=== PATIENT | male | born 2000 | race Caucasian/White ===

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

== ENCOUNTER 2023-05-16 08:42 | Outpatient (REF) | payer MEDICAID, SELFPAY ==
[2023-05-16 12:05] LABS: Cholesterol 253 mg/dL (<200); HDL Cholesterol 45 mg/dL (>40); LDL Cholesterol Calculated 152 mg/dL (<100); Triglycerides 283 mg/dL (<150)
== END 2023-05-16 08:43 | disposition home or self-care (01) ==
LOC: HO.HHCL 08:42
PROVIDERS: Visit Provider Family Medicine
DX: E78.5 Hyperlipidemia, unspecified (principal)
CPT/HCPCS: 36415; 80061

== ENCOUNTER 2024-10-26 08:37 | Outpatient (REF) | payer MEDICAID, SELFPAY ==
--- OUTSIDE RECORDS SUMMARY | 2024-10-26 09:34 | XMS_ITS | Encounter Summary ---
Author Organization [facility] Address [address] [place] [address] Care Team Providers Care Certified Registered Locksmith Name Role Phone Madyson Mayorga Primary Care Provider Reason for Visit * Reason Onset Date Comments CS - NEW RX REQ 04/22/2022 Encounter Details Date Type Department Care Team (Late Contact Info) Description 04/22/2022 Telephone [facility] Central Scheduling Department [address] [place] [phone] Telephone Intake, Staff CS - NEW RX REQ Social History Tobacco Use Types Packs/Day Years Used Date Smoking Tobacco: Never Smokeless Tobacco: Never Sex and Gender Information Value Date Recorded Sex Assigned at Male 03/21/2024 9:27 AM EST Legal Sex Male 6:52 PM EDT Gender Identity Male 03/21/2024 9:27 AM EST Sexual Orientation Bisexual 03/21/2024 9: 27 AM EST documented as of this encounter Miscellaneous Notes * Telephone Encounter - Angy Chan - 04/22/2022 3:29 PM EST Prescription refill request Requested by SEFERINO Medication: ketoconazole Provider: Kayce Pharmacy: [facility] [address] [place] [phone] (confirmed with caller Pharmacy in chart is correct) How much medication does patient have left: ALMOST OUT - filled 3 weeks ago Comments Callback# [phone] documented in this encounter Plan of Treatment Upcoming Encounters Date Type Department Care Team (Late st Contact Info) Description 03/26/2025 9:30 AM EST Office Visit [facility] 4th Floor [address] [facility], [place] [address] Search Director: Anais Ramos MD [address] [place] [address] documented as of this encounter Visit Diagnoses Not on filedocumented in this encounter Care Teams Certified Registered Locksmith Relationship Specialty Start Date End Date Madyson Mayorga [address] [place] [phone] PCP - General Family Medicine 09/14/23 documented as of this encounter
--- OUTSIDE RECORDS SUMMARY | 2024-10-26 09:34 | XMS_ITS | Clinical Summary ---
Author Organization [facility] Address [address] [place] [phone] Phone Care Team Providers Care Nail Cutter Name Role Phone Madyson Mayorga Primary Care Provider [phone] Madyson Mayorga Unavailable [phone] Social History Tobacco Use Types Packs/Day Years Used Date Smoking Tobacco: Never Assessed Sex and Gender Information Value Date Recorded Sex Assigned at Male 06/07/2023 11:50 PM EDT Legal Sex Male 11:50 PM EDT Gender Identity Male 06/07/2023 11:50 PM EDT Sexual Orientation Not on file Plan of Treatment Not on file Care Teams Nail Cutter Relationship Specialty Start Date End Date Madyson Mayorga [address] [place] [phone] PCP - General 10/09/21 Madyson Mayorga [address] [place] [phone] PCP - Clinical PCP 10/09/21
--- OUTSIDE RECORDS SUMMARY | 2024-10-26 09:34 | XMS_ITS | Encounter Summary ---
Author Organization [facility] Address [address] [place] [address] Care Team Providers Care Bilingual Instructor Name Role Phone Madyson Mayorga Primary Care Provider Reason for Visit * Reason Onset Date Comments Confirmation 03/06/2021 Encounter Details Date Type Department Care Team (Late st Contact Info) Description 03/06/2021 Telephone [facility] Central Scheduling Department [address] [place] [phone] Telephone Intake, Staff Confirmation Social History Tobacco Use Types Packs/Day Years Used Date Smoking Tobacco: Never Smokeless Tobacco: Never Sex and Gender Information Value Date Recorded Sex Assigned at Male 03/21/2024 9:27 AM EST Legal Sex Male 6:52 PM EDT Gender Identity Male 03/21/2024 9:27 AM EST Sexual Orientation Bisexual 03/21/2024 9: 27 AM EST documented as of this encounter Miscellaneous Notes * Telephone Encounter - Tamara Yoniliv - 03/06/2021 9:57 AM EST Derm Pt's Dad requesting through [employer] for an individual small group instructor be present at pt's appt 03/[address] Anais Devries I did note this request in the appt notes documented in this encounter Plan of Treatment Upcoming Encounters Date Type Department Care Team (Late st Contact Info) Description 03/26/2025 9:30 AM EST Office Visit [facility] 4th Floor [address] [facility], [place] [address] Electric Plater: Zaynab Devries, Anais Ham MD [address] [place] [address] documented as of this encounter Visit Diagnoses Not on filedocumented in this encounter Care Teams Bilingual Instructor Relationship Specialty Start Date End Date [place], Madyson Velasco [address] [place] [phone] PCP - General Family Medicine 09/14/23 documented as of this encounter
--- OUTSIDE RECORDS SUMMARY | 2024-10-26 09:34 | XMS_ITS | Clinical Summary ---
Author Organization [facility] Address [address] [place] [address] Care Team Providers Care Gum Worker Name Role Phone Madyson Mayorga Primary Care Provider Allergies No known active allergies Medications benztropine (COGENTIN) 1 mg tablet Take 1 mg by mouth 2 times a day. Active clonazePAM (KlonoPIN) [address] 1 tablet between cheek and gums as needed for seizure greater th Active cloNIDine (CATAPRES) 0.1 mg tablet Take 0.1 mg by mouth nightly. Active hydrOXYzine (VISTARIL) 25 mg capsule Take 1 capsule by mouth four times a day (04/24) Active propranolol LA (INDERAL LA) 60 mg capsule Take 60 mg by mouth at bed time. As directed Active divalproex DR (DEPAKOTE) 500 mg EC tablet Take 500 mg by mouth 2 times daily. 01/30/20 Active diazePAM (DIASTAT ACUDIAL) 12.5-15-17.5-20 mg rectal kit Insert 15 mg into the rectum. 01/18/20 20 Active cholecalciferol (VITAMIN D3) 1,000 unit tablet 2000 units by mouth daily 10/17/19 20 Active cloNIDine (CATAPRES) 0.3 mg tablet 03/10/19 22 Active OLANZapine (ZyPREXA) 5 mg tablet 03/10/19 22 Active fluticasone propionate (FLONASE) 50 mcg/actuation nasal spray 03/18/19 22 Active OLANZapine (ZyPREXA) 5 mg tablet SMARTSI Tablet(s) By Mouth 3 Times Daily 05/09/19 21 Active benztropine (COGENTIN) 1 mg tablet SMARTSI Tablet(s) By Mouth Twice Daily 10/14/[address] (DEPAKOTE) 250 mg EC tablet TAKE 1 TABLET BY MOUTH NIGHTLY. 01/29/20 21 Active DOCOSAHEXAENOIC ACID ORAL Take 2 g by mouth daily. 12/01/19 22 Active doxycycline hyclate 100 mg tablet 1 tablet by oral route 2 times per day x 4 months Active famotidine (PEPCID) 20 mg tablet 10/09/19 22 Active meloxicam (MOBIC) 7.5 mg tablet Take 7.5 mg by mouth daily. 05/06/19 23 Active naproxen (NAPROSYN) 500 mg tablet 10/09/19 22 Active senna 8.6 mg tablet 07/31/19 22 Active clindamycin (CLEOCIN T) 1% topical solutionIndication s:Acne keloidalis Apply to bumps on the back of the head once a day. 60 mL 11/20/19 23 Active omega 8-fnm-its-fish oil (Fish OiL) 1,000 mg (120 mg-180 mg) capsule Take by mouth. 06/23/19 24 Active cholecalciferol 400 unit tablet 0 Refills, Maintenance, 06/23/23 11:15:00 EDT, Partial fill upon patient request if the prescription is for a schedule II opioid drug. 06/23/19 24 Active diclofenac (VOLTAREN) 1% gel Apply 4 g topically to the affected area 4 (four) times daily. 04/13/19 24 Active clindamycin (Cleocin T) 1 % lotionIndications: Acne keloid Apply a thin layer daily to the back of the scalp in the morning 60 mL 11/23/19 24 Active fluocinonide (LIDEX) 0.05% solutionIndication s:Acne keloidalis Apply a few drops to the bumps on back of the scalp 1-2x a day as needed for itch, taper off with improvement 60 mL 03/28/19 25 Active ketoconazole (NIZORAL) 2% shampooIndications :Other specified follicular disorders Use as a shampoo every other day to the scalp, neck and back. Leave on for 2-5 minutes then rinse. 120 mL 03/28/19 25 Active clindamycin (CLEOCIN T) 1 % gelIndications:Acn e keloid Apply a thin layer to back of scalp in the morning. 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 Resolved Problems Problem Noted Date Diagnosed Date Resolved Date Folliculitis 10/31/2015 11/25/2017 Dermatitis due to unknown cause 10/27/2015 11/25/2017 Social History Tobacco Use Types Packs/Day Years Used Date Smoking Tobacco: Never Smokeless Tobacco: Never Tobacco Cessation:Counseling Given: Not Answered Sex and Gender Information Value Date Recorded Sex Assigned at Male 03/21/2024 9:27 AM EST Legal Sex Male 6:52 PM EDT Gender Identity Male 03/21/2024 9:27 AM EST Sexual Orientation Bisexual 03/21/2024 9: 27 AM EST Last Filed Vital Signs Vital Sign Reading Time Taken Comments Blood Pressure 118/60 10/27/2015 3:54 PM EDT Pulse - - Temperature - - Respiratory Rate - - Oxygen Saturation - - Inhaled Oxygen Concentration - - Weight 66.7 kg (147 lb 0.8 oz) 08/24/2023 10:28 AM EDT Height 165 cm (5' 4.96 ) 07/16/2022 2:20 PM EDT Body Mass Index 24.5 07/16/2022 2:20 PM EDT Plan of Treatment Upcoming Encounters Date Type Department Care Team (Late st Contact Info) Description 03/26/2025 9:30 AM EST Office Visit [facility] 4th Floor [address] [facility], Fourth [place] [address] Clerical Methods Analyst: Anais Ramos MD [address] [place] [address] Health Maintenance Due Date Last Done Comments COVID-19 Vaccine (2023-2 5 season) 2023 05/13/2023, 08/11/2022, 02/12/2021, Additional history exists Alcohol/Substance Use Screening 02/29/2024 Influenza Vaccine (#1) 2024 , 01/21/2021, 12/28/2019, Additional history exists DTaP,Tdap,and Td Vaccines (8 - Td or Tdap) 05/12/2033 05/13/2023, 04/06/2013, 09/03/2005, Additional history exists RSV Vaccine (60+ years old a nd patients) (1 - 1-dose 75+ series) 2076 Hepatitis B Vaccines Completed 2001, 2001, 2001 Varicella Vaccines Completed 10/05/2010, 05/24/2002 HPV Vaccines Completed 05/01/2015, 11/28, 05/20/2014 Meningococcal Vaccine Completed 01/18/2018, 014 HIV Screening Completed 08/18/2022, 08/18/2022 Pneumococcal Vaccine: Pediat anjel (0-5 Years) and At-Risk Patients (6-50 Years) Completed 05/13/2023, 09/03/2002, 2001, Additional history exists Insurance MEDICARE [facility] Care Teams Gum Worker Relationship Specialty Start Date End Date [place], Madyson Velasco [address] [place] [address] PCP - General Family Medicine 09/14/23
--- OUTSIDE RECORDS SUMMARY | 2024-10-26 09:34 | XMS_ITS | Encounter Summary ---
Author Organization [facility] Address [address] [facility] [address] [place] [address] Care Team Providers Care Hydro Pneumatic Tester Name Role Phone Madyson Mayorga MD Primary Care Provider [phone] Encounter Details Date Type Department Care Team (Late Contact Info) Description 09/27/2022 Orders Only [facility] MEDICINE [address] [place] [phone] Madyson Mayorga MD [address] [place] [address] [phone] Right wrist pain (Primary Dx) Social History Tobacco Use Types Packs/Day Years Used Date Smoking Tobacco: Never Smokeless Tobacco: Never Sex and Gender Information Value Date Recorded Sex Assigned at Male 12/28/2021 10:21 AM EDT Legal Sex Male 10:21 AM EDT Gender Identity Male 12/28/2021 10:21 AM EDT Sexual Orientation Choose not to disclose 2021 10:21 AM EDT documented as of this encounter Plan of Treatment Upcoming Encounters Date Type Department Care Team (Late Contact Info) Description 11/05/2024 9:00 AM EDT Office Visit [facility] MEDICINE [address] [place] [phone] Madyson Mayorga MD [address] [place] [address] [phone] documented as of this encounter Visit Diagnoses Diagnosis Right wrist pain- Primary Pain in joint, forearm Schizoaffective disorder, unspecified type (CMS/HCC)- Primary Dyslipidemia Other and unspecified hyperlipidemia Obesity with serious comorbidity, unspecified class, unspecified obesity type documented in this encounter Care Teams Hydro Pneumatic Tester Relationship Specialty Start Date End Date Madyson Mayorga MD [address] [place] [phone] PCP - General Family Medicine 09/15/20 documented as of this encounter
--- OUTSIDE RECORDS SUMMARY | 2024-10-26 09:34 | XMS_ITS | Encounter Summary ---
Author Organization [facility] Address [address] [facility] [address] [place] [address] Care Team Providers Care Airport Utility Worker Name Role Phone Madyson Mayorga MD Primary Care Provider [phone] Reason for Visit * Reason Onset Date Comments FYI 04/19/2023 Encounter Details Date Type Department Care Team (Late st Contact Info) Description 04/19/2023 Telephone [facility] MEDICINE [address] [place] [address] Madyson Mayorga MD [address] [place] [address] FYI Social History Tobacco Use Types Packs/Day Years Used Date Smoking Tobacco: Never Passive Smoke Exposure: Never Smokeless Tobacco: Never Alcohol Use Standard Drinks/Week Comments Never 0 (1 standard drink = 0.6 oz pur e alcohol) Housing Stability Answer Date Recorded What is your housing situation today? I do not have housing (Staying with others, in a hotel, in a half-way, living outside on the street, on a beach, in a car, or in a park 03/30/[address] you li ve. Do you have problems with any of the following? None of the above 03/30/2023 Food Insecurity Answer Date Recorded Within the past 12 months, y ou worried that your food would run out before you got money to buy more: Never True 01/03/2023 Within the past 12 months,th e food you bought just didn't last and you didn't have enough money to get more: Never True 07/2022 Transportation Answer Date Recorded In the past 12 months, has l ack of transportation kept you from medical appts, meetings, work or from getting things needed for daily living? No 01/03/2023 Utilities Answer Date Recorded In the past 12 months, has t he electric, gas, oil or water company threatened to shut off services in your home? No 01/03/2023 Sex and Gender Information Value Date Recorded Sex Assigned at Male 12/28/2021 10:21 AM EDT Legal Sex Male 10:21 AM EDT Gender Identity Male 12/28/2021 10:21 AM EDT Sexual Orientation Choose not to disclose 2021 10:21 AM EDT documented as of this encounter Miscellaneous Notes * Telephone Encounter - Blanca Rouse RN - 04/19/2023 3:59 PM EST T/C made to pt's mother with [employer] [place] ID [id number] in regards to information about message from [facility]. Received phone number from Oleksandr (pts father) and will contact [facility] to confirm request for labs on this pt. No answer from [facility] requesting clarification. Will advise to PCP and follow up at a later time. * Telephone Encounter - Torin Silverio - 04/19/2023 12:06 PM EST Tc from the patients father calling to to inform the provider that the patient was advised by a Provider from [facility] to get blood works to monitor high B-12 levels and ammonia levels documented in this encounter Plan of Treatment Upcoming Encounters Date Type Department Care Team (Late st Contact Info) Description 11/05/2024 9:00 AM EDT Office Visit [facility] MEDICINE [address] [place] [address] Madyson Mayorga MD [address] [place] [address] documented as of this encounter Visit Diagnoses Not on filedocumented in this encounter Care Teams Airport Utility Worker Relationship Specialty Start Date End Date Madyson Mayorga MD [address] [place] [address] PCP - General Family Medicine 09/15/20 documented as of this encounter
--- OUTSIDE RECORDS SUMMARY | 2024-10-26 09:34 | XMS_ITS | Clinical Summary ---
Author Organization [employer] Address [address] [facility] [address] [place] [address] Care Team Providers Care Pharmacology Teacher Name Role Phone Madyson Mayorga MD Primary Care Provider [phone] Allergies No known active allergies Medications benztropine (Cogentin) 1 MG tablet Take 1 tablet by mouth 2 times daily. Active clonazePAM (KlonoPIN) 1 MG disintegrating tablet 1 tab placed between cheek and gums prn seizure activity > 3 minutes Active divalproex (Depakote) 500 MG EC tablet Take 500 mg by mouth 2 times daily. Active doxycycline (Vibra-Tabs) 100 MG tablet 1 tablet by oral route 2 times per day x 4 months Active fluticasone (Flonase Allergy Relief) 50 MCG/ACT nasal spray Administer 2 sprays into affected nostril(s) in the morning. 03/18/19 22 Active hydrOXYzine pamoate (Vistaril) 25 MG capsule Take 25 mg by mouth 4 times daily. Active ketoconazole (NIZOral) 2 % shampoo use for scalp, neck and back qod Active OLANZapine (ZyPREXA) 5 MG tablet take 1 tab po qAM Active OLANZapine (ZyPREXA) 7.5 MG tablet Take 1 tab po qhs Active propranolol LA (Inderal LA) 60 MG 24 hr capsule 1 capsule,extended release 24 hr by Oral route every day Active DOCOSAHEXAENOIC ACID PO Take 2 g by mouth in the morning. 12/01/19 22 Active cholecalciferol (Vitamin D3) 25 MCG (1000 UT) tablet 08/03/19 23 Active cloNIDine (Catapres) 0.3 MG tablet 08/03/19 23 Active diazePAM (Diastat Acudial) rectal kit Insert 15 mg into the rectum. 01/18/20 20 Active meloxicam (Mobic) 7.5 MG tablet 08/03/19 23 Active omega-3 (fish oil) 1000 MG capsuleIndications :Dyslipidemia Take 1 tab po bid 60 capsule 11 08/12/19 23 Active divalproex sprinkle (Depakote Sprinkle) [address] capsule 03/09/19 24 Active fluocinonide (Lidex) 0.05 % external solution 11/23/19 23 Active Diclofenac Sodium 1 % gel Apply 4 g topically in the morning and 4 g at noon and 4 g in the evening and 4 g before bedtime. 04/13/19 24 Active famotidine (Pepcid) 20 MG tablet Take 20 mg by mouth. 06/23/19 24 Active sennosides (Senokot) 8.6 MG tablet TAKE 1 TO 2 TABLETS BY MOUTH AT BEDTIME NEEDED FOR CONSTIPATION 180 tablet 05/16/19 25 Active carboxymethylcellu lose (Refresh Liquigel) 1 % ophthalmic solution dropperetteIndicat ions:Bilateral incomplete blink Apply 1 drop to both eyes at bedtime. 15 mL 12 07/21/19 25 Active clindamycin (Cleocin T) 1 % lotion 03/01/19 25 Active Active Problems Problem Noted Date Diagnosed Date Bilateral hand pain 06/29/2023 Overview (06/29/2023): -seen at [facility] pain clinic With Dr. Tanya Rios on 06/29/23 -no evidence of RA with rheumatology Aortic valve prolapse 06/27/2023 Overview (06/27/2023): -Mild to moderate -Cardiology note 06/24/[address] Yanely Bravo, DO, FAAP, FACC, Pediatric Cardiology [facility] -echo 06/23/23 no significant LVH, mild thickened aortic valve, unchanged from 2 years pior -recommend transition to adult congenital heart disease clinic with follow up 1 year, referral placed by pediatric cardiology 06/23/23 -No interventions. No need for SBE prophylaxis. 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 Her most recent note from 07/21/2022 reviewed. Depakote was attempted to reduce from 500mg bid to once daily, but he then heard voices to go to the hospital or leave school.. He went back up and did much better. He sees psychiatrist Dr. Marcella Owens. Ad,ossopmin 10/2019 for possible myoclonic seizures. Work up during admission did not show seizure activity. Concern for myoclonus. Seemed to improve with increased Depakote dose. Mom reports EEG was done and was normal. Conitnue Depakote at 500mg BID due to mood and hallucination. Assessment & Plan (05/13/2023 9:36 AM EDT): Follows with neuro at [facility], Dr Muonz [phone]. Her most recent note from 07/21/2022 reviewed. Depakote was attempted to reduce from 500mg bid to once daily, but he then heard voices to go to the hospital or leave school.. He went back up and did much better. He sees psychiatrist Dr. Marcella Owens. Ad,ossopmin 10/2019 for possible myoclonic seizures. Work up during admission did not show seizure activity. Concern for myoclonus. Seemed to improve with increased Depakote dose. Mom reports EEG was done and was normal. Conitnue Depakote at 500mg BID due to mood and hallucination. Assessment & Plan (08/10/2022 4:23 PM EDT): Follows with neuro at [facility], Dr Munoz [phone]. Her most recent note from 07/21/2022 reviewed. Depakote was attempted to reduce from 500mg bid to once daily, but he then heard voices to go to the hospital or leave school.. He went back up and did much better. He sees psychiatrist Dr. Marcella Owens. Ad,ossopmin 10/2019 for possible myoclonic seizures. Work up during admission did not show seizure activity. Concern for myoclonus. Seemed to improve with increased Depakote dose. Mom reports EEG was done and was normal. Conitnue Depakote at 500mg BID due to mood and hallucination. Global developmental delay 08/10/2022 Preventative health care 08/10/2022 Overview (05/13/2023): -physical due after 07/2023 -last optho apt 04/16/2022 a [facility] -Health care proxy paperwork completed by the patient 05/13/23 Assessment & Plan (05/13/2023 9:49 AM EDT): -physical due after 07/2023 -last optho apt 04/16/2022 a [facility] -Health care proxy paperwork completed by the patient 05/13/23 Assessment & Plan (08/11/2022 10:45 AM EDT): Next PE due 2023. -last optho apt 04/16/2022 at [facility] -sleep study at [facility] 3dx snoring, no sleep apnea -Encouraged dental 08/11/2022. 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 Hx seizures. 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 Follows with neuro at [facility], Dr Munoz [phone]. Her most recent note from 07/21/2022 reviewed. Depakote was attempted to reduce from 500mg bid to once daily, but he then heard voices to go to the hospital or leave school.. He went back up and did much better. He sees psychiatrist Dr. Marcella Owens. Ad,ossopmin 10/2019 for possible myoclonic seizures. Work up during admission did not show seizure activity. Concern for myoclonus. Seemed to improve with increased Depakote dose. Mom reports EEG was done and was normal. Conitnue Depakote at 500mg BID due to mood and hallucination. Assessment & Plan (05/13/2023 9:33 AM EDT): Communicating hydrocephalus with efren cisterna magna. Hx seizures. 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 Follows with neuro at [facility], Dr Munoz [phone]. Her most recent note from 07/21/2022 reviewed. Depakote was attempted to reduce from 500mg bid to once daily, but he then heard voices to go to the hospital or leave school.. He went back up and did much better. He sees psychiatrist Dr. Marcella Owens. Ad,ossopmin 10/2019 for possible myoclonic seizures. Work up during admission did not show seizure activity. Concern for myoclonus. Seemed to improve with increased Depakote dose. Mom reports EEG was done and was normal. Conitnue Depakote at 500mg BID due to mood and hallucination. Assessment & Plan (08/10/2022 3:45 PM EDT): Communicating hydrocephalus with efren cisterna magna. Hx seizures. 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 Follows with neuro at [facility], Dr Munoz [phone]. Her most recent note from 07/21/2022 reviewed. Depakote was attempted to reduce from 500mg bid to once daily, but he then heard voices to go to the hospital or leave school.. He went back up and did much better. He sees psychiatrist Dr. Marcella Owens. Ad,ossopmin 10/2019 for possible myoclonic seizures. Work up during admission did not show seizure activity. Concern for myoclonus. Seemed to improve with increased Depakote dose. Mom reports EEG was done and was normal. Conitnue Depakote at 500mg BID due to mood and hallucination. Dyslipidemia 02/01/2022 Overview (05/13/2023): Lab Results Component Value Date CHOLESTEROL 234 (H) 08/18/2022 LDLCHOL 146 (H) 08/18/2022 LDLCHOL 156 (H) 08/12/2021 TRIG 323 (H) 08/18/2022 HDLCHOL 38 (L) 08/18/2022 CHOLHDLRAT 6.2 (H) 08/18/2022 Fish oil started 08/11/2022. -Ordered labs. Assessment & Plan (05/13/2023 9:33 AM EDT): Lab Results Component Value Date CHOLESTEROL 234 (H) 08/18/2022 LDLCHOL 146 (H) 08/18/2022 LDLCHOL 156 (H) 08/12/2021 TRIG 323 (H) 08/18/2022 HDLCHOL 38 (L) 08/18/2022 CHOLHDLRAT 6.2 (H) 08/18/2022 Fish oil started 08/11/2022. -Ordered labs. Assessment & Plan (08/11/2022 10:46 AM EDT): Lab Results Component Value Date CHOLESTEROL 240 (H) 08/12/2021 LDLCHOL 156 (H) 08/12/2021 HDLCHOL 40 08/12/2021 CHOLHDLRAT 6.0 (H) 08/12/2021 Fish oil started 08/11/2022. -Ordered labs. 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 Hx seizures. 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 -genetics note from [facility] 08/05/2016 reviewed -recommend thyroid function tests -recommend multidiciplinary approach and continue with psychiatry Assessment & Plan (05/13/2023 9:36 AM EDT): Communicating hydrocephalus with efren cisterna magna. Hx seizures. 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 -genetics note from [facility] 08/05/2016 reviewed -recommend thyroid function tests -recommend multidiciplinary approach and continue with psychiatry Assessment & Plan (08/10/2022 4:22 PM EDT): Communicating hydrocephalus with efren cisterna magna. Hx seizures. 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 Overview (08/10/2022): -Followed at [facility] -note form 03/2021 reviewed, recommended -alternating with benzoyl peroxide was and ketoconazole shampoo in the am -continue clinda gel once in the am -can use flucinonide cream if itchy nightly as needed Assessment & Plan (05/13/2023 9:36 AM EDT): -Followed at [facility] -note form 03/2021 reviewed, recommended -alternating with benzoyl peroxide was and ketoconazole shampoo in the am -continue clinda gel once in the am -can use flucinonide cream if itchy nightly as needed 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 Overview (08/10/2022): -Followed at [facility] -note form 03/2021 reviewed, recommended wash scalp, chest, back with ketoconazole shampoo every other day Disruptive behavior disorder 12/16/2014 Developmental delay 05/21/2014 Overview (08/10/2022): [facility] IEP at [facility] Assessment & Plan (08/10/2022 9:14 AM EDT): Has IEP at [facility] in [place] 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 No need for SBE prophylaxis. No activity limitations. -F/u-Dr. Martini in [place] 09/2021. -Cardiology note 06/24/[address] Yanely Bravo, DO, FAAP, FACC, Pediatric Cardiology [facility] -EKG 05/2023 NSR with voltage criteria for LVH -echo 06/23/23 no significant LVH, mild thickened aortic valve, unchanged from 2 years pior -recommend transition to adult congenital heart disease clinic with follow up 1 year, referral placed by pediatric cardiology 06/23/23 Assessment & Plan (05/13/2023 9:35 AM EDT): small -Last cardiology note 10/11/2019 reporting VSD is small and not hemodynamically significant -No interventions. No need for SBE prophylaxis. No activity limitations. -Last cardiology note 10/11/2019 reporting VSD is small and not hemodynamically significant -No interventions. No need for SBE prophylaxis. No activity limitations. -F/u-Dr. Martini in [place] 09/2021. -We are calling cardiology to see if Pt went in 2021, we will help setting up if he did not. -Referral placed to Cardiology for further evaluation and management 05/13/23 Assessment & Plan (08/11/2022 10:48 AM EDT): -Last cardiology note 10/11/2019 reporting VSD is small and not hemodynamically significant -No interventions. No need for SBE prophylaxis. No activity limitations. -F/u-Dr. Martini in [place] 09/2021. -We are calling cardiology to see if Pt went in 2021, we will help setting up if he did not. Resolved Problems Problem Noted Date Diagnosed Date Resolved Date Tonic-clonic epileptic seizure 05/13/2023 05/24/2024 Moderate intellectual disabilities 12/29/2016 08/10/2022 Encounters Date Type Department Care Team Description 10/18/2024 Telephone [facility] [address] [place] [address] Madyson Mayorga MD Appointment Confirmation 10/18/2024 Telephone [facility] [address], [place] [phone] Madyson Mayorga MD 09/14/2024 9:00 AM EDT Office Visit [facility] [address] [place] [address] Regular astigmatism of both eyes (Primary Dx) from Last 3 Months Immunizations Immunization Administration Dates Next Due DTaP 09/03/2005, 3,02/16/2002,12/04,2001 HPV 9-Valent 05/01/2015,12/16/2014 HPV, Quadrivalent 05/20/2014 Hep A, ped/adol, 2 dose 01/12/2016,05/01/2015 Hep B, Adolescent or Pediatric 2001,2001,2001 Hib (HbOC) 09/03/2002,2001,2001 IPV 09/03/2005, 2,2001,06/22 Influenza injectable quadriv alent preservative free 12/08/2021,01/21/2021,12/28/2019,01/15,01/18/2018,03/30/2017,11/19/2015 ,12/16/2014,01/04/2014 Influenza, IIV3, injectable 03/22/2011 Influenza, Split (incl. lucho fied surface antigen) 01/05/2013,11/17/2011 MMR 09/03/2005,05/24/2002 Meningococcal MCV4P ACYW-135 01/18/2018,04/06/19 14 Moderna Covid-19 Vaccine 12+ 02/12/2021,05/30/19 21,05/01/2020 Pfizer Covid-19 Vaccine 12+ 05/13/2023 Pfizer Covid-19 Vaccine 12+ Bivalent 08/11/2022 Pneumococcal Conjugate PCV 20 05/13/2023 Pneumococcal Conjugate PCV 7 09/03/2002,12/05/19 02,2001 Tdap 05/13/2023,04/06/2013 Varicella 10/05/2010,05/24/2002 Social History Tobacco Use Types Packs/Day Years Used Date Smoking Tobacco: Never Passive Smoke Exposure: Never Smokeless Tobacco: Never Tobacco Cessation:Counseling Given: Not Answered Alcohol Use Standard Drinks/Week Comments Never 0 (1 standard drink = 0.6 oz pur e alcohol) Housing Stability Answer Date Recorded What is your housing situation today? I do not have housing (Staying with others, in a hotel, in a usp, living outside on the street, on a [...] not to disclose 2021 10:21 AM EDT Last Filed Vital Signs Vital Sign Reading Time Taken Comments Blood Pressure 124/86 05/13/2023 9:18 AM EDT Pulse 104 05/13/2023 9:18 AM EDT Temperature 37.2 C (98.9 F) 05/13/2023 9:18 AM EDT Respiratory Rate 20 05/13/2023 9:18 AM EDT Oxygen Saturation 98% 05/13/2023 9:18 AM EDT Inhaled Oxygen Concentration - - Weight 69.7 kg (153 lb 9.6 oz) 05/13/2023 9:18 A M EDT Height 165.1 cm (5' 5 ) 05/13/2023 9:18 AM EDT Body Mass Index 25.56 05/13/2023 9:18 AM EDT Plan of Treatment Upcoming Encounters Date Type Department Care Team (Late st Contact Info) Description 11/05/2024 9:00 AM EDT Office Visit [facility] [address] [place] [address] Madyson Mayorga MD [address] [place], [place] [phone] Health Maintenance Due Date Last Done Comments Chlamydia and Gonorrhea Screening 2001 Depression Screening 2001 Disability Screening 2001 Alcohol/Substance Use Screening 2013 Family Planning (PISQ) 2016 Meningococcal B Vaccine (1 of 2 - Standard) 2017 COVID-19 Vaccine ( season) 2023 05/13/2023, 08/11/2022, 02/12/2021, Additional history exists SDOH Screening 03/30/2024 03/30/2023 Influenza Vaccine (#1) 2024 , 01/21/2021, 12/28/2019, Additional history exists DTaP/Tdap/Td Vaccines (8 - Td or Tdap) 05/12/2033 05/13/2023, 04/06/2013, 09/03/2005, Additional history exists Zoster Vaccines (1 of 2) 2051 RSV Patients and Patients Aged 60 years or older (1 - 1-dose 75+ series) 2076 Hepatitis B Vaccines Completed 2001, 2001, 2001 HIB Vaccines Completed 09/03/2002, 09/2001, 2001 IPV Vaccines Completed 09/03/2005, 08/2001, 2001, Additional history exists HPV Vaccines Completed 05/01/2015, 11/28, 05/20/2014 Hepatitis A Vaccines Completed 01/12/2016, 05/01/19 16 Meningococcal Vaccine Completed 01/18/2018, 014 HIV Screening Completed 08/18/2022 Hepatitis C Screening Completed 08/18/2022 Pneumococcal Vaccine: Pediatrics (0 to 5 Years) and At-Risk Patients (6 to 49) Years Completed 05/13/2023, 09/03/2002, 2001, Additional history exists Tobacco Screening Discontinued 08/03/2024 RSV under 20 months Aged Out No longe r eligible based on patient's age to complete this topic Rotavirus Vaccines Aged Out No longer eligible based on patient's age to complete this topic Procedures Procedure Name Priority Date/Time Associated Diagnosis Comments HEPATITIS C AB W/REFL TO HCV RNA, QN, PCR Routine 08/18/2022 8:26 AM EDT Routine screening for STI (sexually transmitted infection) HIV 1/2 ANTIGEN/ANTIBODY, FOURTH GENERATION W/RFL Routine 08/18/2022 8:26 AM EDT Routine screening for STI (sexually transmitted infection) from Last 3 Months or Most Recently Relevant to Health Maintenance Results * Hepatitis C Antibody with Reflex to HCV, RNA, Quantitative, Real-Time PCR (08/18/2022 8:26 AM EDT) Hepatitis C Antibody NON-REACT ALVARO NON-REACT ALVARO [facility] Comment: HCV antibody was non-reactive. There is no laboratory evidence of HCV infection. In most cases, no further action is required. However, if recent HCV exposure is suspected, a test for HCV RNA (test code 83143) is suggested. For additional information please refer to http://education.[employer]/faq/EXE12g1 (This link is being provided for informational/ educational purposes only.) Blood Venous blood specimen / Unknown 08/18/2022 8:26 AM EDT 08/18/2022 8:27 AM EDT Narrative [facility] - 08/18/2022 11:54 PM EDT FASTING:YES FASTING: YES us Madyson Mayorga MD LAB BLOOD ORDERABLES Final Result [facility] [address], [place] [address] [facility] [place] [facility] [address] [place] [address] * HIV-1/2 Antigen and Antibodies, Fourth Generation, with Reflexes (08/18/2022 8:26 AM EDT) HIV Antigen/Antibody, 4th Generation NON-REAC TIVE NON-REAC TIVE [facility] [place] [facility] Comment: HIV-1 antigen and HIV-1/HIV-2 antibodies were not detected. There is no laboratory evidence of HIV infection. PLEASE NOTE: This information has been disclosed to you from records whose confidentiality may be protected by state law. If your state requires such protection, then the state law prohibits you from making any further disclosure of the information without the specific written consent of the person to whom it pertains, or as otherwise permitted by law. A general authorization for the release of medical or other information is NOT sufficient for this purpose. For additional information please refer to http://education.[employer]/faq/WVP253 (This link is being provided for informational/ educational purposes only.) The performance of this assay has not been clinically validated in patients less than 2 years old. Blood Venous blood specimen / Unknown 08/18/2022 8:26 AM EDT 08/18/2022 8:27 AM EDT Narrative [facility] - 08/18/2022 11:54 PM EDT FASTING:YES FASTING: YES Madyson Mayorga MD LAB BLOOD ORDERABLES Final Result [facility] [address], [place] [address] [facility] [place] [email or web address] [address] [place] [address] from Last 3 Months or Most Recently Relevant to Health Maintenance Insurance [facility] ST[employer] MEDICARE Care Teams Pharmacology Teacher Relationship Specialty Start Date End Date [place], [place] Madyson [address] [place] [phone] PCP - General Family Medicine 09/15/20
[2024-10-26 12:56] LABS: Alanine Aminotransferase 45 U/L (0-40); Albumin Level 4.8 g/dL (3.5-5.0); Alkaline Phosphatase 49 U/L (39-117); Anion Gap 15 (12-20); Aspartate Amino Transferase 40 U/L (5-37); Blood Urea Nitrogen 17 mg/dL (9-16); Calcium 9.9 mg/dL (8.4-10.2); Carbon Dioxide 28 mmol/L (22-29); Chloride 103 mmol/L (96-108); Cholesterol 232 mg/dL (<200); Estimated Glomerular Filt Rate > 60; HDL Cholesterol 41 mg/dL (>40); Potassium 3.9 mmol/L (3.3-5.1); Sodium 142 mmol/L (135-145); Total Protein 7.7 g/dL (6.5-8.0); Triglycerides 282 mg/dL (<150)
== END 2024-10-26 08:38 | disposition home or self-care (01) ==
LOC: HO.HHCL 08:37
PROVIDERS: PCP Family Medicine; Visit Provider Family Medicine
DX: E78.5 Hyperlipidemia, unspecified (principal)
CPT/HCPCS: 36415; 80048; 80061; 80076

== ENCOUNTER 2025-01-18 08:36 | Outpatient (REF) | payer MEDICAID, SELFPAY ==
--- OUTSIDE RECORDS SUMMARY | 2025-01-18 08:42 | XMS_ITS | Encounter Summary ---
Author Organization [employer] Address [address] [facility] 7t [place] [address] Care Team Providers Care Estimator Jewelry Name Role Phone Madyson Mayorga MD Primary Care Provider +1- [phone] Encounter Details Date Type Department Care Team (Late st Contact Info) Description 01/16/2025 Telephone [facility] MED[facility]INE [address] [place], [place] [phone] Madyson Mayorga MD [address] [place], [place] [phone] Social History Tobacco Use Types Packs/Day Years Used Date Smoking Tobacco: Never Passive Smoke Exposure: Never Smokeless Tobacco: Never Alcohol Use Standard Drinks/Week Comments Never 0 (1 standard drink = 0.6 oz pur e alcohol) Depression Answer Date Recorded Patient Health Questionnaire-9 Score 8 11/05/2024 Patient Health Questionnaire-9 Score 8 11/05/2024 Last PHQ-9: Questionnaire Data Not on file 0 11/05/2024 Housing Stability Answer Date Recorded What is your housing situation today? I have pita mark 11/05/[address] you li ve. Do you have problems with any of the following? None of the above 11/05/2024 Food Insecurity Answer Date Recorded Within the past 12 months, y ou worried that your food would run out before you got money to buy more: Never True 11/05/2024 Within the past 12 months,th e food you bought just didn't last and you didn't have enough money to get more: Never True 09/2024 Transportation Answer Date Recorded In the past 12 months, has l ack of transportation kept you from medical appts, meetings, work or from getting things needed for daily living? No 11/05/2024 Utilities Answer Date Recorded In the past 12 months, has t he electric, gas, oil or water company threatened to shut off services in your home? No 11/05/2024 Depression Answer Date Recorded Patient Health Questionnaire-2 Score 2 11/05/2024 Internet Access Answer Date Recorded Internet Access Q1 No 11/05/2024 Internet Access Q2 I do not want or need it 09/2024 Sex and Gender Information Value Date Recorded Sex Assigned at Male 12/28/2021 10:21 AM EDT Legal Sex Male 10:21 AM EDT Gender Identity Male 12/28/2021 10:21 AM EDT Sexual Orientation Choose not to disclose 2021 10:21 AM EDT documented as of this encounter Miscellaneous Notes * Telephone Encounter - Madyson Mayorga MD - 01/16/2025 2:26 PM EST Please ask mom or dad to bring in for fasting labs before apt on Tuesday if thy can. Can also go to [facility] if need to go on . Thank you. documented in this encounter Plan of Treatment Upcoming Encounters Date Type Department Care Team (Late st Contact Info) Description 01/21/2025 11:00 AM EST Office Visit [facility] [address] [place] [address] Madyson Mayorga MD [address] [place] [address] documented as of this encounter Visit Diagnoses Not on filedocumented in this encounter Additional Health Concerns Assessment Noted Time PHQ-9 Depression Total Score: 8 11/06/19 25 9:07 AM EDT documented as of this encounter Care Teams Estimator Jewelry Relationship Specialty Start Date End Date Madyson Mayorga MD [address] [place] [phone] PCP - General Family Medicine 09/15/20 documented as of this encounter
--- OUTSIDE RECORDS SUMMARY | 2025-01-18 08:42 | XMS_ITS | Encounter Summary ---
Author Organization [employer] Address [address] [facility] 7t [place] [address] Care Team Providers Care Cashiers Supervisor Name Role Phone Madyson Mayorga MD Primary Care Provider +1- [phone] Encounter Details Date Type Department Care Team (Latest Contact Info) Description 01/15/2025 Travel Social History Tobacco Use Types Packs/Day Years [...] Description 01/21/2025 11:00 AM EST Office Visit [facility] [address] [place] [address] Madyson Mayorga MD [address] [place] [address] documented as of this encounter Visit Diagnoses Not on filedocumented in this encounter Additional Health Concerns Assessment Noted Time PHQ-9 Depression Total Score: 8 11/06/19 25 9:07 AM EDT documented as of this encounter Care Teams Cashiers Supervisor Relationship Specialty Start Date End Date Madyson Mayorga MD [address] [place] [address] PCP - General Family Medicine 09/15/20 documented as of this encounter
--- OUTSIDE RECORDS SUMMARY | 2025-01-18 08:42 | XMS_ITS | Encounter Summary ---
Author Organization [employer] Address [address] [facility] 7t [place] [address] Care Team Providers Care Commercial Real Estate Manager Name Role Phone Madyson Mayorga MD Primary Care Provider +1- [phone] Reason for Visit * Reason Onset Date Comments Lab Orders 01/16/2025 Encounter Details Date Type Department Care Team ([facility] st Contact Info) Description 01/16/2025 Telephone [facility] MEDICINE [address] [place], [place] [phone] Madyson Mayorga MD [address] [place], [place] [phone] Lab Orders Social History Tobacco Use Types Packs/Day Years [...] encounter Miscellaneous Notes * Telephone Encounter - Stephanie Silverio MA - 01/16/2025 3:55 PM EST I spoke with the Mom that he need to do blood work before the appointment. documented in this encounter Plan of Treatment Upcoming Encounters Date Type Department Care Team (Late st Contact Info) Description 01/21/2025 11:00 AM EST Office Visit [facility] MED[facility]INE [address] [place] [address] Madyson Mayorga MD [address] [place] [address] documented as of this encounter Visit Diagnoses Not on filedocumented in this encounter Additional Health Concerns Assessment Noted Time PHQ-9 Depression Total Score: 8 11/06/19 25 9:07 AM EDT documented as of this encounter Care Teams Commercial Real Estate Manager Relationship Specialty Start Date End Date Madyson Mayorga MD [address] [place] [address] PCP - General Family Medicine 09/15/20 documented as of this encounter
--- OUTSIDE RECORDS SUMMARY | 2025-01-18 08:43 | XMS_ITS | Encounter Summary ---
Author Organization [facility] Address [address] [place] [address] Care Team Providers Care Rpg Programmer Name Role Phone Madyson Mayorga Primary Care Provider Reason for Visit * Reason Onset Date Comments Confirmation 03/06/2021 Encounter Details Date Type Department Care Team (Late st Contact Info) Description 03/06/2021 Telephone [facility] Central Scheduling Department [address] [place] [phone] Telephone Intake, Staff Confirmation Social History Tobacco [...] EST Derm Pt's Dad requesting through [employer] for an replanting machine crew be present at pt's appt 03/[address] Anais Devries I did note this request in the appt notes documented in this encounter Plan of Treatment Upcoming Encounters Date Type Department Care Team (Late st Contact Info) Description 03/26/2025 9:30 AM EST Office Visit [facility] 4th Floor [address] [facility], [place] [address] Pigment Furnace Tender: Zaynab Devries, Anais Ham MD [address] [place] [address] documented as of this encounter Visit Diagnoses Not on filedocumented in this encounter Care Teams Rpg Programmer Relationship Specialty Start Date End Date Langley, Madyson Velasco [address] [place] [address] PCP - General Family Medicine 09/14/23 documented as of this encounter
--- OUTSIDE RECORDS SUMMARY | 2025-01-18 08:43 | XMS_ITS | Encounter Summary ---
Author Organization [employer] Address [address] [facility] 7t [place] [address] Care Team Providers Care Grinder Operator Tool Name Role Phone Madyson Mayorga MD Primary Care Provider +1- [phone] Reason for Visit * Reason Onset Date Comments FYI 04/19/2023 Encounter Details Date Type Department Care Team (Late st Contact Info) Description 04/19/2023 Telephone [facility] MEDICINE [address] [place] [address] Madyson Mayorga MD [address] [place], [place] [phone] FYI Social History Tobacco Use Types Packs/Day Years Used Date Smoking Tobacco: Never Passive Smoke Exposure: Never Smokeless Tobacco: Never Alcohol Use Standard Drinks/Week Comments Never 0 (1 standard drink = 0.6 oz pur e alcohol) Housing Stability Answer Date Recorded What is your housing situation today? I do not have housing (Staying with others, in a hotel, in [place] [facility] [place], living outside on the street, on a [...] EST T/C made to pt's mother with [email or web address] [place] [id number] in regards to information about message from [facility]. Received phone number from Oleksandr (pts father) and will contact [facility] to confirm request for labs on this pt. No answer from [facility] requesting clarification. Will advise to PCP and follow up at a later time. * Telephone Encounter - Torin Silverio - 04/19/2023 12:06 PM EST Tc from the patients father calling to to inform the provider that the patient was advised by a Provider from [facility] to get blood works to monitor high B-12 levels and ammonia levels documented in this encounter Plan of Treatment Upcoming Encounters Date Type Department Care Team (Late st Contact Info) Description 01/21/2025 11:00 AM EST Office Visit [facility] MEDICINE [address] [place] [address] Madyson Mayorga MD [address] [place] [address] documented as of this encounter Visit Diagnoses Not on filedocumented in this encounter Care Teams Grinder Operator Tool Relationship Specialty Start Date End Date Madyson Mayorga MD [address] [place] [address] PCP - General Family Medicine 09/15/20 documented as of this encounter
--- OUTSIDE RECORDS SUMMARY | 2025-01-18 08:43 | XMS_ITS | Encounter Summary ---
Author Organization [facility] Address [address] [place] [address] Care Team Providers Care Side Trimmer Name Role Phone Madyson Mayorga Primary Care Provider Reason for Visit * Reason Onset Date Comments CS - NEW RX REQ 04/22/2022 Encounter Details Date Type Department Care Team (Late Contact Info) Description 04/22/2022 Telephone [facility] Central Scheduling Department [address] [place] [phone] Telephone Intake, Staff CS - NEW RX REQ Social History Tobacco Use Types Packs/Day Years Used Date Smoking Tobacco: Never Smokeless Tobacco: Never Sex and Gender Information Value Date Recorded Sex Assigned at Male 03/21/2024 9:27 AM EST Legal Sex Male 6:52 PM EDT Gender Identity Male 03/21/2024 9:27 AM EST Sexual Orientation Bisexual 03/21/2024 9 :27 AM EST documented as of this encounter Miscellaneous Notes * Telephone Encounter - Angy Chan - 04/22/2022 3:29 PM EST Prescription refill request Requested by SEFERINO Medication: ketoconazole Provider: Kayce Pharmacy: [facility] [address] [place] [phone] (confirmed with caller Pharmacy in chart is correct) How much medication does patient have left: ALMOST OUT - filled 3 weeks ago Comments Callback# [phone] documented in this encounter Plan of Treatment Upcoming Encounters Date Type Department Care Team (Late st Contact Info) Description 03/26/2025 9:30 AM EST Office Visit [facility] 4th Floor [address] [facility], [place] [address] Optometry Teacher: Anais Ramos MD [address] [place] [address] documented as of this encounter Visit Diagnoses Not on filedocumented in this encounter Care Teams Side Trimmer Relationship Specialty Start Date End Date Madyson Mayorga [address] [place] [address] PCP - General Family Medicine 09/14/23 documented as of this encounter
--- OUTSIDE RECORDS SUMMARY | 2025-01-18 08:43 | XMS_ITS | Encounter Summary ---
Author Organization [employer] Address [address] [place] [address] [address] [place] [address] Care Team Providers Care Electrical Continuity Tester Name Role Phone Madyson Mayorga MD Primary Care Provider +1- [phone] Encounter Details Date Type Department Care Team (Late Contact Info) Description 09/27/2022 Orders Only [facility] MEDICINE [address] [place] [phone] Madyson Mayorga MD [address] [place] [address] [phone] Right wrist pain (Primary Dx) Social History [...] Description 01/21/2025 11:00 AM EST Office Visit [facility] [address] [place] [address] Madyson Mayorga MD [address] [place] [phone] documented as of this encounter Visit Diagnoses Diagnosis Right wrist pain- Primary Pain in joint, forearm documented in this encounter Care Teams Electrical Continuity Tester Relationship Specialty Start Date End Date Madyson Mayorga MD [address] [place] [phone] PCP - General Family Medicine 09/15/20 documented as of this encounter
--- OUTSIDE RECORDS SUMMARY | 2025-01-18 08:43 | XMS_ITS | Clinical Summary ---
Author Organization [employer] Address [address] [facility] [address] [place] [address] Care Team Providers Care Career Services Manager Name Role Phone Madyson Mayorga MD Primary Care Provider [phone] Allergies No known active allergies Medications benztropine [...] sprays into affected nostril(s) in the morning. 022 Active hydrOXYzine pamoate (Vistaril) 25 MG capsule Take 25 mg by mouth 4 times daily. Active ketoconazole (NIZOral) 2 % shampoo use for scalp, neck and back qod Active OLANZapine (ZyPREXA) 5 MG tablet take 1 tab po qAM Active OLANZapine (ZyPREXA) 7.5 MG tablet Take 1 tab po qhs Active propranolol LA (Inderal LA) 60 MG 24 hr capsule 1 capsule,extende d release 24 hr by Oral route every day Active DOCOSAHEXAENOIC ACID PO Take 2 g by mouth in the morning. 022 Active cloNIDine (Catapres) 0.3 MG tablet 023 Active diazePAM (Diastat Acudial) rectal kit Insert 15 mg into the rectum. 020 Active meloxicam (Mobic) 7.5 MG tablet 023 Active divalproex sprinkle (Depakote Sprinkle) [address] capsule Active fluocinonide (Lidex) 0.05 % external solution Active Diclofenac Sodium 1 % gel Apply 4 g topically in the morning and 4 g at noon and 4 g in the evening and 4 g before bedtime. Active famotidine (Pepcid) 20 MG tablet Take 20 mg by mouth. Active carboxymethylcell ulose (Refresh Liquigel) 1 % ophthalmic solution dropperetteIndica tions:Bilateral incomplete blink Apply 1 drop to both eyes at bedtime. 15 mL 12 Active clindamycin (Cleocin T) 1 % lotion Active gabapentin (Neurontin) 100 MG capsule Take 100 mg by mouth Once per day. Active Meloxicam 7.5 MG tablet dispersible 7.5 mg. Active sennosides (Senokot) 4.3 mg tablet (HALF TABLET) Refills 0, Maintenance, 06/26/24 2:43:00 PM EDT, Partial fill upon patient request if the prescription is for a schedule II opioid drug. Active omega-3 (fish oil) 1000 MG capsuleIndication s:Dyslipidemia Take 2 tabs po bid 180 capsule 11 Active sennosides (Senokot) 8.6 MG tabletIndications :Constipation, unspecified constipation type TAKE 1 TO 2 TABLETS BY MOUTH AT BEDTIME NEEDED FOR CONSTIPATION 180 tablet Active cholecalciferol (Vitamin D3) 25 MCG (1000 UT) tablet TAKE 2 TABLETS BY MOUTH ONCE A DAY 60 tablet 3 025 Active cholecalciferol (Vitamin D3) 25 MCG (1000 UT) tablet 023 2024 Discontinued(R eorder (will not trigger notification to Pharmacy)) Active Problems Problem Noted Date Diagnosed Date Transaminitis 11/05/2024 Overview (11/05/2024): Lab Results Component Value Date TOTALBILIRUB 0.6 10/26/2024 AST 40 (H) 10/26/2024 AST 18 08/18/2022 ALT 45 (H) 10/26/2024 ALT 20 08/18/2022 ALP 49 10/26/2024 HEPCAB NON-REACTIVE 08/18/2022 Fish oil started 08/11/2022. Increase to 2 in the morning and 2 at night 11/05/24 -reordered las 11/05/24 -follows with cardiology. Assessment & Plan (11/05/2024 10:42 AM EDT): Lab Results Component Value Date TOTALBILIRUB 0.6 10/26/2024 AST 40 (H) 10/26/2024 AST 18 08/18/2022 ALT 45 (H) 10/26/2024 ALT 20 08/18/2022 ALP 49 10/26/2024 HEPCAB NON-REACTIVE 08/18/2022 Fish oil started 08/11/2022. Increase to 2 in the morning and 2 at night 11/05/24 -reordered las 11/05/24 -follows with cardiology. Bilateral hand pain 06/29/2023 Overview (06/29/2023): -seen at [facility] pain clinic With Dr. Tanya Rios on 06/29/23 -no evidence of RA with rheumatology Aortic valve prolapse 06/27/2023 Overview (06/27/2023): -Mild to moderate -Cardiology note 06/24/[address] Yanely Bravo, DO, FAAP, FACC, Pediatric Cardiology [facility] -echo 06/23/23 no significant LVH, mild thickened aortic valve, unchanged from 2 years pior -recommend transition to adult congenital heart disease clinic with follow up 1 year, referral placed by pediatric cardiology 06/23/23 -No interventions. No need for SBE prophylaxis. No activity limitations Assessment & Plan (11/05/2024 10:42 AM EDT): -Mild to moderate -Cardiology note 06/24/[address] Yanely Bravo, DO, FAAP, FACC, Pediatric Cardiology [facility] -echo 06/23/23 no significant LVH, mild thickened aortic valve, unchanged from 2 years pior -recommend transition to adult congenital heart disease clinic with follow up 1 year, referral placed by pediatric cardiology 06/23/23 -No interventions. No need for SBE prophylaxis. 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 Her most recent note from 07/21/2022 reviewed. [...] to mood and hallucination. Assessment & Plan (11/05/2024 10:42 AM EDT): Follows with neuro at [facility], Dr Munoz [phone]. Her most recent note from 07/21/2022 reviewed. [...] 9:36 AM EDT): Follows with neuro at [facility], Dr Munoz [phone]. Her most recent note from 07/21/2022 reviewed. [...] 4:23 PM EDT): Follows with neuro at [facility], Dr Munoz [phone]. Her most recent note from 07/21/2022 reviewed. [...] mood and hallucination. Global developmental delay 08/10/2022 Other specified health status 08/10/2022 Overview (11/05/2024): -next comprehensive annual evaluation due after 11/05/25 -last optho apt 09/14/24 a [facility] -Dentist in [facility] -Health care proxy paperwork completed by the patient 05/13/23 Assessment & Plan (11/05/2024 10:42 AM EDT): -next comprehensive annual evaluation due after 11/05/25 -last optho apt 09/14/24 a [facility] -Dentist in [facility] Dental -Health care proxy paperwork completed by the patient 05/13/23 Assessment & Plan (05/13/2023 9:49 AM EDT): -physical due after 07/2023 -last optho apt 04/16/2022 a [facility] -Health care proxy paperwork completed by the patient 05/13/23 Assessment & Plan (08/11/2022 10:45 AM EDT): Next PE due 2023. -last optho apt 04/16/2022 at [facility] -sleep study at [facility] Sleep [facility] 3dx snoring, no sleep apnea -Encouraged dental 08/11/2022. 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 Hx seizures. 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 Follows with neuro at [facility], Dr Munoz [phone]. Her most recent note from 07/21/2022 reviewed. [...] to mood and hallucination. Assessment & Plan (11/05/2024 10:42 AM EDT): Communicating hydrocephalus with efren cisterna magna. Hx seizures. 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 Follows with neuro at [facility], Dr Munoz [phone]. Her most recent note from 07/21/2022 reviewed. [...] hemizygous for a novel variant in the [id number] gene. Follows with neuro at [facility], Dr Munzo [phone]. Her most recent note from 07/21/2022 reviewed. [...] hemizygous for a novel variant in the SSA450 gene. Follows with neuro at [facility], Dr Munoz [phone]. Her most recent note from 07/21/2022 reviewed. [...] to mood and hallucination. Dyslipidemia 02/01/2022 Overview (11/05/2024): Lab Results Component Value Date CHOLESTEROL 234 (H) 08/18/2022 LDLCHOL 146 (H) 08/18/2022 LDLCHOL 156 (H) 08/12/2021 TRIG 282 (H) 10/26/2024 TRIG 283 (H) 05/16/2023 TRIG 323 (H) 08/18/2022 HDLCHOL 38 (L) 08/18/2022 CHOLHDLRAT 6.2 (H) 08/18/2022 Fish oil started 08/11/2022. Increase to 2 in the morning and 2 at night 11/05/24 -reordered las 11/05/24 Assessment & Plan (11/05/2024 10:42 AM EDT): Lab Results Component Value Date CHOLESTEROL 234 (H) 08/18/2022 LDLCHOL 146 (H) 08/18/2022 LDLCHOL 156 (H) 08/12/2021 TRIG 282 (H) 10/26/2024 TRIG 283 (H) 05/16/2023 TRIG 323 (H) 08/18/2022 HDLCHOL 38 (L) 08/18/2022 CHOLHDLRAT 6.2 (H) 08/18/2022 Fish oil started 08/11/2022. Increase to 2 in the morning and 2 at night 11/05/24 -reordered las 11/05/24 Orders: Hepatic Function Panel; Future Lipid Panel, Standard; Future Basic Metabolic Panel; Future omega-3 (fish oil) 1000 MG capsule; Take 2 tabs po bid Assessment & Plan (05/13/2023 9:33 AM EDT): [...] hemizygous for a novel variant in the [id number] gene. -genetics note from [facility] 08/05/2016 reviewed -recommend thyroid function tests -recommend multidiciplinary approach and continue with psychiatry Assessment & Plan (11/05/2024 10:42 AM EDT): Communicating hydrocephalus with efren cisterna magna. Hx seizures. 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 -genetics note from [facility] 08/05/2016 reviewed -recommend thyroid function tests -recommend multidiciplinary approach and continue with psychiatry Assessment & Plan (05/13/2023 9:36 AM EDT): Communicating hydrocephalus with efren cisterna magna. Hx seizures. 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 -genetics note from [facility] 08/05/2016 reviewed -recommend thyroid function tests -recommend multidiciplinary approach and continue with psychiatry Assessment & Plan (08/10/2022 4:22 PM EDT): Communicating hydrocephalus with efren cisterna magna. Hx seizures. 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 Overview (08/10/2022): -Followed at [facility] Dermatology -note form 03/2021 reviewed, recommended -alternating with benzoyl peroxide was and ketoconazole shampoo in the am -continue clinda gel once in the am -can use flucinonide cream if itchy nightly as needed Assessment & Plan (05/13/2023 9:36 AM EDT): -Followed at [facility] Dermatology -note form 03/2021 reviewed, recommended -alternating with benzoyl peroxide was and ketoconazole shampoo in the am -continue clinda gel once in the am -can use flucinonide cream if itchy nightly as needed 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 Per psychiatric note: -Teach relaxation and coping strategies -Continue with psychiatrist. Consider referral for therapist through [facility]. 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 No need for SBE prophylaxis. No activity limitations. -F/u-Dr. Martini in [place] 09/2021. -Cardiology note 06/24/[address] Yanely Bravo, DO, FAAP, FACC, Pediatric Cardiology [facility] -EKG 05/2023 NSR with voltage criteria for LVH -echo 06/23/23 no significant LVH, mild thickened aortic valve, unchanged from 2 years pior -recommend transition to adult congenital heart disease clinic with follow up 1 year, referral placed by pediatric cardiology 06/23/23 Assessment & Plan (11/05/2024 10:42 AM EDT): -small, restrictive supracristal VSD with associated aortic valve prolapse, stable mild to moderate aortic insufficieny -Cardiology note 10/11/2019 reporting VSD is small and not hemodynamically significant -No interventions. No need for SBE prophylaxis. No activity limitations. -F/u-Dr. Martini in [place] 09/2021. -Cardiology note 06/24/[address] Yanely Bravo, , FAAP, FACC, Pediatric Cardiology [facility] -EKG 05/2023 NSR with voltage criteria [...] prophylaxis. No activity limitations. -F/u-Dr. Martini in [place] 09/2021. -We are calling cardiology to see if Pt went in 2021, we will help setting up if he did not. -Referral placed to Cardiology for further evaluation and management 05/13/23 Assessment & Plan (08/11/2022 10:48 AM EDT): -Last cardiology note 10/11/2019 reporting VSD is small and not hemodynamically significant -No interventions. No need for SBE prophylaxis. No activity limitations. -F/u-Dr. Martini in [place] 09/2021. -We are calling cardiology to see if Pt went in 2021, we will help setting up if he did not. Resolved Problems Problem Noted Date Diagnosed Date Resolved Date Tonic-clonic epileptic seizure (CMS/HCC) 05/13/2023 05/24/2024 Moderate intellectual disabilities 12/29/2016 08/10/2022 Encounters Date Type Department Care Team Description 01/16/2025 Telephone [facility] [address] [place] [phone] Madyson Mayorga MD Lab Orders 01/16/[address] [phone] Madyson Mayorga MD 01/15/2025 Travel 01/04/2025 Refill [facility] [address] [place] [address] Madyson Mayorga MD 12/03/[address] [address] Madyson Mayorga MD December Recalls 12/03/2024 Travel 11/05/2024 9:00 AM EDT Office Visit [facility] [address] [place] [phone] Madyson Mayorga MD Schizoaffective disorder, unspecified type (CMS/HCC) (Primary Dx); Dyslipidemia; Transaminitis; Ventricular septal defect; Aortic valve prolapse; Chromosomal abnormality; Tonic clonic epilepsy (CMS/HCC); Communicating hydrocephalus (CMS/HCC); Constipation, unspecified constipation type; Obesity with serious comorbidity, unspecified class, unspecified obesity type; Dietary counseling; Exercise counseling; Other specified health status 11/05/2024 Travel 11/02/2024 Telephone [facility] [address] [place] [phone] Kathie Ceja MA 10/29/2024 Travel 10/26/2024 Patient Outreach [facility] [address] [place] [phone] Madyson Mayorga MD Pre-visit Planning ((Unable to reach for PVP screening, LVM) to be completed in office ) 10/18/2024 Telephone [facility] [address] [place] [phone] Madyson Mayorga MD Appointment Confirmation 10/18/2024 Telephone [facility] [address] [place] [phone] Madyson Mayorga MD from Last 3 Months Immunizations Immunization Administration [...] Sign Reading Time Taken Comments Blood Pressure 110/82 11/05/2024 8:59 AM EDT Pulse 84 11/05/2024 8:59 AM EDT Temperature 37.2 C (98.9 F) 11/05/2024 8:59 AM EDT Respiratory Rate 20 11/05/2024 8:59 AM EDT Oxygen Saturation 98% 11/05/2024 8:59 AM EDT Inhaled Oxygen Concentration - - Weight 67.2 kg (148 lb 3.2 oz) 11/05/2024 8:59 A M EDT Height 152.4 cm (5') 11/05/2024 8:59 AM EDT Body Mass Index 28.94 11/05/2024 8:59 AM EDT Plan of Treatment Upcoming Encounters Date Type Department Care Team (Late st Contact Info) Description 01/21/2025 11:00 AM EST Office Visit [facility] [address] [place] [phone] Madyson Mayorga MD [address] [place] [address] Health Maintenance Due Date Last Done Comments Chlamydia and Gonorrhea Screening 2001 Meningococcal B Vaccine (1 of 2 - Standard) 2017 COVID-19 Vaccine ( season) 2024 05/13/2023, 08/11/2022, 02/12/2021, Additional history exists Influenza Vaccine (#1) 2024 , 01/21/2021, 12/28/2019, Additional history exists Alcohol/Substance Use Screening 11/05/2025 11/05/2024 Depression Screening 11/05/2025 11/05/2024, 11/06/19 Family Planning (PISQ) 11/05/2025 11/05/2024 SDOH Screening 11/05/2025 11/05/2024 Disability Screening 01/15/2026 01/15/2025 Lipid Panel 10/26/2029 10/26/2024, 04/28, 08/18/2022, Additional history exists DTaP/Tdap/Td Vaccines (8 - [...] 2001, Additional history exists Tobacco Screening Discontinued 11/05/2024 RSV under 20 months Aged Out No longe r eligible based on patient's age to complete this topic Rotavirus Vaccines Aged Out No longer eligible based on patient's age to complete this topic Procedures Procedure Name Priority Date/Time Associated Diagnosis Comments BASIC METABOLIC PANEL Routine 10/26/2024 8:42 AM EDT Dyslipidemia LIPID PANEL, STANDARD Routine 10/26/2024 8:42 AM EDT Dyslipidemia HEPATIC FUNCTION PANEL Routine 10/26/2024 8:42 AM EDT Dyslipidemia HEPATITIS C AB W/REFL TO HCV RNA, QN, PCR Routine 08/18/2022 8:26 AM EDT Routine screening for STI (sexually transmitted infection) HIV 1/2 ANTIGEN/ANTIBODY, FOURTH GENERATION W/RFL Routine 08/18/2022 8:26 AM EDT Routine screening for STI (sexually transmitted infection) from Last 3 Months or Most Recently Relevant to Health Maintenance Results * (ABNORMAL) Hepatic Function Panel (10/26/2024 8:42 AM EDT) Bilirubin, Total 0.6 0.0 - 1.0 mg/dL [facility] Bilirubin, Direct 0.2 0.0 - 0.5 mg/dL [facility] Aspartate Amino Transferase 40(H) 5 - 37 U/L [facility] Alanine Aminotransferase 45(H) 0 - 40 U/L [facility] Total Protein 7.7 6.5 - 8.0 g/dL [facility] Albumin Level 4.8 3.5 - 5.0 g/dL [facility] Alkaline Phosphatase 49 39 - 117 U/L [facility] Blood Venous blood specimen / Unknown 10/26/2024 8:42 AM EDT 10/26/2024 11:38 AM EDT Madyson Mayorga MD LAB BLOOD ORDERABLES Final Result [facility] [address] [place] [phone] * (ABNORMAL) Lipid Panel, Standard (10/26/2024 8:42 AM EDT) Triglycerides 282(H) <150 mg/dL [facility] Comment:Desirable Triglyceri de: less than 150 mg/dLBorderline High Triglyceride 150-199 mg/dLHigh Triglyceride: 200-499 mg/dLVery High Triglyceride: greater than or equal to 5OO mg/dL Cholesterol 232(H) <200 mg/dL [facility] Comment:Desirable Cholestero l: less than 200 mg/dLBorderline High Cholesterol: 200-239 mg/dLHigh Cholesterol: greater than 239 mg/dL LDL Cholesterol Calculated 135(H) <100 mg/dL [facility] Comment:Desirable LDL: less than 100 mg/dLNear Optimal/Above Optimal LDL: 110- 129 mg/dLBorderline High LDL: 130-159 mg/dLHigh LDL: 160-189 mg/dLVery High LDL: greater than or equal to 190 mg/dL HDL Cholesterol 41 >40 mg/dL [facility] Comment:Desirable HDL: great er than 40 mg/dL Note: This HDL assay may give artificially low results in patients with liver disease. Blood Venous blood specimen / Unknown 10/26/2024 8:42 AM EDT 10/26/2024 11:38 AM EDT Madyson Mayorga MD LAB BLOOD ORDERABLES Final Result [facility] [address] [place] [phone] * (ABNORMAL) Basic Metabolic Panel (10/26/2024 8:42 AM EDT) Sodium 142 135 - 145 mmol/L [facility] Potassium 3.9 3.3 - 5.1 mmol/L [facility] Chloride 103 96 - 108 mmol/L [facility] Carbon Dioxide 28 22 - 29 mmol/L [facility] Anion Gap 15 12 - 20 [facility] Urea Nitrogen (BUN) 17(H) 9 - 16 mg/dL [facility] Creatinine, Serum 0.77 0.5 - 1.4 mg/dL [facility] Estimated Glomerular Filt Rate >60 [facility] Comment:Chronic Kidney Disea se: Estimated GFR < 60 mL/min/1.21x2Bufhwc Kidney Disease: Estimated GFR < 15 mL/min/1.73m2 Glucose 86 60 - 115 mg/dL [facility] Calcium 9.9 8.4 - 10.2 mg/dL [facility] Blood Venous blood specimen / Unknown 10/26/2024 8:42 AM EDT 10/26/2024 11:38 AM EDT Madyson Mayorga MD LAB BLOOD ORDERABLES Final Result [facility] [address] [place] [phone] * Hepatitis C Antibody with Reflex to HCV, RNA, Quantitative, Real-Time PCR (08/18/2022 8:26 AM EDT) Hepatitis C Antibody NON-REACT ALVARO NON-REACT ALVARO [facility] [place] [employer] Comment: HCV antibody was non-reactive. There is no laboratory evidence of HCV infection. In most cases, no further action is required. However, if recent HCV exposure is suspected, a test for HCV RNA (test code 08659) is suggested. For additional information please refer to http://education.Cloze/faq/YUP11x4 (This link is being provided for informational/ educational purposes only.) Blood Venous blood specimen / Unknown 08/18/2022 8:26 AM EDT 08/18/2022 8:27 AM EDT Narrative [facility] - 08/18/2022 11:54 PM EDT FASTING:YES FASTING: YES Madyson Mayorga MD LAB BLOOD ORDERABLES Final Result Performing Organization Address City/[facility] Co de Phone Number [facility] [address], [place] [address] [facility] [place] [facility] [address] [place] [address] * HIV-1/2 Antigen and Antibodies, Fourth Generation, with Reflexes (08/18/2022 8:26 AM EDT) HIV Antigen/Antibody, 4th Generation NON-REAC TIVE NON-REAC TIVE [facility] [place] [employer] Comment: HIV-1 antigen and HIV-1/HIV-2 antibodies were [...] purpose. For additional information please refer to http://education.Cloze/faq/CSW701 (This link is being provided for informational/ educational purposes only.) The performance of this assay has not been clinically validated in patients less than 2 years old. Blood Venous blood specimen / Unknown 08/18/2022 8:26 AM EDT 08/18/2022 8:27 AM EDT Narrative [facility] - 08/18/2022 11:54 PM EDT FASTING:YES FASTING: YES Madyson Mayorga MD LAB BLOOD ORDERABLES Final Result [facility] [address], [place] [address] [facility] [address] [place] [phone] from Last 3 Months or Most Recently Relevant to Health Maintenance [place] [address] [place] [address] STANDARD MEDICARE Care Teams Career Services Manager Relationship Specialty Start Date End Date Mariposa, MD Madyson [address] [place] [phone] PCP - General Family Medicine 09/15/20
--- OUTSIDE RECORDS SUMMARY | 2025-01-18 08:43 | XMS_ITS | Clinical Summary ---
Author Organization [facility] Address [address] [place] [address] Care Team Providers Care Mender Knit Goods Name Role Phone Madyson Mayorga Primary Care Provider [phone] Allergies No known active allergies Medications benztropine [...] day. 60 mL 11/20/19 23 Active omega 5-ayr-ozl-fish oil (Fish OiL) 1,000 mg (120 mg-180 [...] Description 03/26/2025 9:30 AM EST Office Visit [facility] Dermatology Clinic 4th Floor [address] [facility], [place] [address] Medical Billing And Coding Instructor: Anais Ramos MD [address] [place] [address] Health Maintenance Due Date Last Done Comments Medicare AWV 2002 Alcohol/Substance Use Screening 02/29/2024 Depression Screening and Follow-Up 02/29/2024 Social Drivers of Health Kerry ual Screening 02/29/2024 Influenza Vaccine (#1) 2024 2, 01/21/2021, 12/28/2019, Additional history exists COVID-19 Vaccine (6 - 2024-2 6 season) 2024 05/13/2023, 08/11/2022, 02/12/2021, Additional history exists DTaP,Tdap,and Td Vaccines (8 - Td or Tdap) 05/12/2033 05/13/2023, 04/06/2013, 09/03/2005, Additional history exists Hepatitis B Vaccines Completed 2001, 2001, 2001 Varicella Vaccines Completed 10/05/2010, 05/24/2002 HPV Vaccines Completed 05/01/2015, 11/28, 05/20/2014 Meningococcal Vaccine Completed 01/18/2018, 014 HIV Screening Completed 08/18/2022, 08/18/2022 Hepatitis C Screening Completed 08/18/2022 Pneumococcal Vaccine: Pediat anjel (0-5 Years) and At-Risk Patients (6-50 Years) Completed 05/13/2023, 09/03/2002, 2001, Additional history exists Insurance [facility]ARE [facility] Care Teams Mender Knit Goods Relationship Specialty Start Date End Date Mukesh, Madyson Velasco [address] [place] [address] PCP - General Family Medicine 09/14/23
--- OUTSIDE RECORDS SUMMARY | 2025-01-18 08:43 | XMS_ITS | Clinical Summary ---
Author Organization [facility] Address [address] [place] [phone] Phone Care Team Providers Care Supervisor Photocomposition Name Role Phone Madyson Mayorga Primary Care Provider Madyson Mayorga Unavailable [phone] Social History Tobacco Use Types Packs/Day Years Used Date Smoking Tobacco: Never Assessed Sex and Gender Information Value Date Recorded Sex Assigned at Male 06/07/2023 11:50 PM EDT Legal Sex Male 11:50 PM EDT Gender Identity Male 06/07/2023 11:50 PM EDT Sexual Orientation Not on file Plan of Treatment Not on file Care Teams Supervisor Photocomposition Relationship Specialty Start Date End Date Madyson Mayorga [address] [place] [address] PCP - General 10/09/21 Madyson Mayorga [address] [place] [address] PCP - Clinical PCP 10/09/21
[2025-01-18 12:12] LABS: Alanine Aminotransferase 37 U/L (0-40); Albumin Level 5.1 g/dL (3.5-5.0); Alkaline Phosphatase 50 U/L (39-117); Aspartate Amino Transferase 38 U/L (5-37); Cholesterol 251 mg/dL (<200); HDL Cholesterol 45 mg/dL (>40); Total Protein 8.4 g/dL (6.5-8.0); Triglycerides 306 mg/dL (<150)
== END 2025-01-18 08:37 | disposition home or self-care (01) ==
LOC: HO.HHCL 08:36
PROVIDERS: PCP Family Medicine; Visit Provider Family Medicine
DX: R74.01 Elevation of levels of liver transaminase levels (principal); E78.5 Hyperlipidemia, unspecified
CPT/HCPCS: 36415; 80061; 80076

== ENCOUNTER 2025-02-26 08:27 | Outpatient (REF) | payer MEDICAID, SELFPAY ==
--- OUTSIDE RECORDS SUMMARY | 2025-02-26 10:06 | XMS_ITS | Encounter Summary ---
Author Organization [facility] Address [address] [place] [address] Care Team Providers Care Barrel Roller Name Role Phone Madyson Mayorga Primary Care Provider Reason for Visit * Reason Onset Date Comments CS - NEW RX REQ 04/22/2022 Encounter Details Date Type Department Care Team (Late Contact Info) Description 04/22/2022 Telephone [facility] Central Scheduling Department [address] [place] [address] Telephone Intake, Staff CS - NEW RX [...] Medication: ketoconazole Provider: Kayce Pharmacy: [facility] [address] [place] [address] (confirmed with caller Pharmacy in chart is correct) How much medication does patient have left: ALMOST OUT - filled 3 weeks ago Comments Callback# [phone] documented in this encounter Plan of Treatment Upcoming Encounters Date Type Department Care Team (Late st Contact Info) Description 03/26/2025 9:30 AM EST Office Visit [facility] Dermatology Clinic 4th Floor [address] [facility], Fourth [place] [address] Grinder Machine Knife Setter: Anais Ramos MD [address] [place] [address] documented as of this encounter Visit Diagnoses Not on filedocumented in this encounter Care Teams Barrel Roller Relationship Specialty Start Date End Date Madyson Mayorga [address] [place] [address] PCP - General Family Medicine 09/14/23 documented as of this encounter
--- OUTSIDE RECORDS SUMMARY | 2025-02-26 10:06 | XMS_ITS | Clinical Summary ---
Author Organization [facility] Address [address] [place] [address] Phone Care Team Providers Care Highway Patrol Pilot Name Role Phone Madyson Mayorga Primary Care Provider Madyson Mayorga Unavailable [phone] Social History Tobacco Use Types Packs/Day Years Used Date Smoking Tobacco: Never Assessed Sex and Gender Information Value Date Recorded Sex Assigned at Male 06/07/2023 11:50 PM EDT Legal Sex Male 11:50 PM EDT Gender Identity Male 06/07/2023 11:50 PM EDT Sexual Orientation Not on file Plan of Treatment Not on file Care Teams Highway Patrol Pilot Relationship Specialty Start Date End Date Madyson Mayorga [address] [place] [address] PCP - General 10/09/21 Madyson Mayorga [address] [place] [address] PCP - Clinical PCP 10/09/21
--- OUTSIDE RECORDS SUMMARY | 2025-02-26 10:06 | XMS_ITS | Encounter Summary ---
Author Organization [facility] Address [address] [place] [address] [address] [place] [address] Care Team Providers Care Tablet Coater Name Role Phone Madyson aMyorga MD Primary Care Provider Jai Damon Unavailable Adrienne Durand PharmD Unavailable Encounter Details Date Type Department Care Team (Late Contact Info) Description 09/27/2022 Orders Only [facility] MEDICINE [address] [place] [address] Madyson Mayorga MD [address] [place] [address] Right wrist pain (Primary Dx) Social History [...] Department Care Team (Late Contact Info) Description 03/04/2025 9:00 AM EST Medication Management [facility]ICINE [address] [place] [phone] Adrienne Durand, PharmD [address] [place] [address] documented as of this encounter Visit Diagnoses Diagnosis Right wrist pain- Primary Pain in joint, forearm documented in this encounter Care Teams Tablet Coater Relationship Specialty Start Date End Date Madyson Mayorga MD [address] [place] [address] PCP - General Family Medicine 09/15/20 Jai Damon [address] [address] Dermatology 01/21/25 Adrienne Durand, EusebioD [address] [place] [address] Pharmacist Pharmacy 02/04/25 Dr. Jai Song MD [facility] Cardiology [address] [place] [address] Cardiology 01/21/25 Dr. Juan Daniel Manuel MD [place] [address] Rheumatology 01/21/25 Marcella BALDERAS Psychiatry 01/21/25 Angela BALDERAS Psychology 01/21/25 documented as of this encounter
--- OUTSIDE RECORDS SUMMARY | 2025-02-26 10:06 | XMS_ITS | Encounter Summary ---
Author Organization [facility] Address [address] [place] [address] Care Team Providers Care Gold Blower Name Role Phone Madyson Mayorga Primary Care Provider Reason for Visit * Reason Onset Date Comments Confirmation 03/06/2021 Encounter Details Date Type Department Care Team (Late st Contact Info) Description 03/06/2021 Telephone [facility] Central Scheduling Department [address] [place] [address] Telephone Intake, Staff Confirmation Social History Tobacco [...] EST Derm Pt's Dad requesting through ALS Sales Technician for an rn telemetry be present at pt's appt 03/[address] Anais Devries I did note this request in the appt notes documented in this encounter Plan of Treatment Upcoming Encounters Date Type Department Care Team (Late st Contact Info) Description 03/26/2025 9:30 AM EST Office Visit [facility] Dermatology Clinic 4th Floor [address] [facility], [place] [address] Tire Layer: Zaynab Devries, Anais Ham MD [address] [place] [address] documented as of this encounter Visit Diagnoses Not on filedocumented in this encounter Care Teams Gold Blower Relationship Specialty Start Date End Date Fillmore, Madyson Velasco [address] [place] [address] PCP - General Family Medicine 09/14/23 documented as of this encounter
--- OUTSIDE RECORDS SUMMARY | 2025-02-26 10:06 | XMS_ITS | Clinical Summary ---
Author Organization [facility] Address [address] [place] [address] Care Team Providers Care Label Paster Name Role Phone Madyson Mayorga Primary Care [...] day. 60 mL 11/20/19 23 Active omega 1-avr-mmr-fish oil (Fish OiL) 1,000 mg (120 mg-180 [...] Description 03/26/2025 9:30 AM EST Office Visit [facility] Dermatology Clinic 4th Floor [address] [facility], Fourth [place] [address] Wax Pot Tender: Anais Ramos MD [address] [place] [address] Health Maintenance Due Date Last [...] 09/03/2002, 2001, Additional history exists Insurance MEDICARE [facility] Care Teams Label Paster Relationship Specialty Start Date End Date Mukesh, Madyson Velasco [address] [place] [address] PCP - General Family Medicine 09/14/23
--- OUTSIDE RECORDS SUMMARY | 2025-02-26 10:06 | XMS_ITS | Encounter Summary ---
Author Organization [facility] Address [address] [facility] 7t [place] [address] Care Team Providers Care Supervisor Shearing Name Role Phone Madyson Mayorga MD Primary Care Provider [phone] Jai Damon Unavailable [phone] Adrienne DurandD Unavailable [phone]- [phone] Encounter Details Date Type Department Care Team (Latest Contact Info) Description 02/25/2025 Travel Social History Tobacco Use Types Packs/Day [...] Care Team (Late st Contact Info) Description 03/04/2025 9:00 AM EST Medication Management [facility] MEDICINE [address] [place] [address] Adrienne Durand PharmD [address] [place] [address] documented as of this encounter Visit Diagnoses Not on filedocumented in this encounter Additional Health Concerns Assessment Noted Time PHQ-9 Depression Total Score: 8 11/06/19 25 9:07 AM EDT documented as of this encounter Care Teams Supervisor Shearing Relationship Specialty Start Date End Date Madyson Mayorga MD [address] [place] [address] PCP - General Family Medicine 09/15/20 Jai Damon [address] [place] [phone] Dermatology 01/21/25 Adrienne Durand, PharmD [address] [place] [address] Pharmacist Pharmacy 02/04/25 Dr. Jai Song MD [facility] Cardiology [address] [place] [address] Cardiology 01/21/25 Dr. Juan Daniel Manuel [place] [address] Rheumatology 01/21/25 Marcella [facility] Psychiatry 01/21/25 Angela BALDERAS Psychology 01/21/25 documented as of this encounter
--- OUTSIDE RECORDS SUMMARY | 2025-02-26 10:06 | XMS_ITS | Encounter Summary ---
Author Organization [facility] Address [address] [facility] 7t [place] [address] Care Team Providers Care Greeting Card Maker Name Role Phone Madyson Mayorga MD Primary Care Provider [phone] Jai Damon Unavailable [phone] Adrienne DurandD Unavailable [phone] Reason for Visit * Reason Onset Date Comments FYI 04/19/2023 Encounter Details Date Type Department Care Team (Late st Contact Info) Description 04/19/2023 Telephone [facility] MEDICINE [address] [place], [place] [phone] Madyson Mayorga MD [address] [place], [place] [phone] FYI Social History Tobacco Use Types Packs/Day Years Used Date Smoking Tobacco: Never Passive Smoke Exposure: Never Smokeless Tobacco: Never Alcohol Use Standard Drinks/Week Comments Never 0 (1 standard drink = 0.6 oz pur e alcohol) Housing Stability Answer Date Recorded What is your housing situation today? I do not have housing (Staying with others, in a hotel, in a senior care, living outside on the street, on a [...] EST T/C made to pt's mother with [employer] [place] [id number] in regards to information about message from [facility]. Received phone number from Oleksandr (pts father) and will contact [facility] to confirm request for labs on this pt. No answer from [facility] requesting clarification. Will advise to PCP and follow up at a later time. * Telephone Encounter - Torin Silverio - 04/19/2023 12:06 PM EST Tc from the patients father calling to to inform the provider that the patient was advised by a Provider from [facility] to get blood works to monitor high B-12 levels and ammonia levels documented in this encounter Plan of Treatment Upcoming Encounters Date Type Department Care Team (Late st Contact Info) Description 03/04/2025 9:00 AM EST Medication Management [facility] MEDICINE [address] [place], [place] [phone] Adrienne Durand, PharmD [address] [place], [place] [phone] documented as of this encounter Visit Diagnoses Not on filedocumented in this encounter Care Teams Greeting Card Maker Relationship Specialty Start Date End Date Madyson Mayorga MD [address] [place] [address] PCP - General Family Medicine 09/15/20 Jai Damon [address] [address] Dermatology 01/21/25 Adrienne Durand, EusebioD [address] [place] [address] Pharmacist Pharmacy 02/04/25 Dr. Jai Song MD [facility] Cardiology [address] [place] [address] Cardiology 01/21/25 Dr. Juan Daniel Manuel MD [place] [address] Rheumatology 01/21/25 Marcella BALDERAS Psychiatry 01/21/25 Angela BALDERAS Psychology 01/21/25 documented as of this encounter
--- OUTSIDE RECORDS SUMMARY | 2025-02-26 10:06 | XMS_ITS | Clinical Summary ---
Author Organization [employer] Address [address] [facility] [address] [place] [address] Care Team Providers Care Fabrication Operator Name Role Phone Madyson Mayorga MD Primary Care Provider [phone] Jai Damon Unavailable [phone] Adrienne DurandD Unavailable [phone] Allergies No known active allergies Medications benztropine [...] mouth in the morning. 12/01/19 22 Active cloNIDine (Catapres) 0.3 MG tablet 08/03/19 23 Active diazePAM (Diastat Acudial) rectal kit Insert 15 mg into the rectum. 01/18/20 Active meloxicam (Mobic) 7.5 MG tablet 08/03/19 Active divalproex sprinkle (Depakote Sprinkle) [address] capsule 03/09/19 24 Active fluocinonide (Lidex) 0.05 % external solution 11/23/19 Active Diclofenac Sodium 1 % gel Apply 4 g topically in the morning and 4 g at noon and 4 g in the evening and 4 g before bedtime. 04/13/19 24 Active famotidine (Pepcid) 20 MG tablet Take 20 mg by mouth. 06/23/19 24 Active carboxymethylcellu lose (Refresh Liquigel) 1 % ophthalmic solution dropperetteIndicat ions:Bilateral incomplete blink Apply 1 drop to both eyes at bedtime. 15 mL 12 07/21/19 25 Active clindamycin (Cleocin T) 1 % lotion 03/01/19 25 Active gabapentin (Neurontin) 100 MG capsule Take 100 mg by mouth Once per day. 09/27/19 25 Active Meloxicam 7.5 MG tablet dispersible 7.5 mg. 06/27/19 25 Active sennosides (Senokot) 4.3 mg tablet (HALF TABLET) Refills 0, Maintenance, 06/26/24 2:43:00 PM EDT, Partial fill upon patient request if the prescription is for a schedule II opioid drug. 06/27/19 25 Active omega-3 (fish oil) 1000 MG capsuleIndications :Dyslipidemia Take 2 tabs po bid 180 capsule 11 11/06/19 25 Active sennosides (Senokot) 8.6 MG tabletIndications: Constipation, unspecified constipation type TAKE 1 TO 2 TABLETS BY MOUTH AT BEDTIME NEEDED FOR CONSTIPATION 180 tablet 11/06/19 25 Active cholecalciferol (Vitamin D3) 25 MCG (1000 UT) tablet TAKE 2 TABLETS BY MOUTH ONCE A DAY 60 tablet 3 01/05/20 25 Active atorvastatin (Lipitor) 20 MG tabletIndications: Dyslipidemia Take 1 tablet (20 mg) by mouth Once per day. 30 tablet 11 01/22/20 25 026 Active Active Problems Problem Noted Date Diagnosed Date Chronic myofascial pain 01/21/2025 Overview (01/21/2025): Followed by domestic freight forwarder Dr. Juan Daniel Manuel seen 09/26/24 Work up for autoimmune etiology negative. Trial of vibration ball and gabapentin 100mg at night discussed. Follow up 4 months with rheumatology. Assessment & Plan (01/21/2025 11:19 AM EST): Followed by domestic freight forwarder Dr. Juan Daniel Manuel seen 09/26/24 Work up for autoimmune etiology negative. Trial of vibration ball and gabapentin 100mg at night discussed. Follow up 4 months with rheumatology. Transaminitis 11/05/2024 Overview (01/21/2025): Lab Results Component Value Date TOTALBILIRUB 0.7 01/18/2025 AST 38 (H) 01/18/2025 AST 18 08/18/2022 ALT 37 01/18/2025 ALT 20 08/18/2022 ALP 50 01/18/2025 HEPCAB NON-REACTIVE 08/18/2022 Fish oil started 08/11/2022. Increase to 2 in the morning and 2 at night 11/05/24 -reordered las 11/05/24 -follows with cardiology. Assessment & Plan (01/21/2025 11:19 AM EST): Lab Results Component Value Date TOTALBILIRUB 0.6 10/26/2024 AST 40 (H) 10/26/2024 AST 18 08/18/2022 ALT 45 (H) 10/26/2024 ALT 20 08/18/2022 ALP 49 10/26/2024 HEPCAB NON-REACTIVE 08/18/2022 Fish oil started 08/11/2022. Increase to 2 in the morning and 2 at night 11/05/24 -improved with lifestyle intervention -follows with cardiology. Orders: Hepatic Function Panel; Future Assessment & Plan (11/05/2024 10:42 AM EDT): [...] hand pain 06/29/2023 Overview (06/29/2023): -seen at [facility] pain clinic With Dr. Tanya Rios on 06/29/23 -no evidence of RA with rheumatology Aortic valve prolapse 06/27/2023 Overview (06/27/2023): -Mild to moderate -Cardiology note 06/24/[address] Yanely Bravo, , FAAP, FACC, Pediatric Cardiology [facility] -echo 06/23/23 no significant LVH, mild thickened aortic valve, unchanged from 2 years pior -recommend transition to adult congenital heart disease clinic with follow up 1 year, referral placed by pediatric cardiology 06/23/23 -No interventions. No need for SBE prophylaxis. No activity limitations Assessment & Plan (01/21/2025 11:19 AM EST): -Mild to moderate -Cardiology note 06/24/[address] Yanely Bravo, , FAAP, FACC, Pediatric Cardiology [facility] -echo 06/23/23 no significant LVH, mild thickened [...] Yanely Bravo, , FAAP, FACC, Pediatric Cardiology [facility] -echo 06/23/23 no significant LVH, mild thickened aortic valve, unchanged from 2 years pior -recommend transition to adult congenital heart disease clinic with follow up 1 year, referral placed by pediatric cardiology 06/23/23 -No interventions. No need for SBE prophylaxis. 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 Her most recent note from 07/21/2022 reviewed. [...] to mood and hallucination. Assessment & Plan (01/21/2025 11:19 AM EST): Follows with neuro at [facility], Dr Munoz [phone]. Her most recent note from 07/21/2022 reviewed. [...] 10:42 AM EDT): Follows with neuro at [facility], Dr Munoz [phone]. Her most recent note from 07/21/2022 reviewed. [...] 9:36 AM EDT): Follows with neuro at [facility], Dr Munoz [phone]. Her most recent note from 07/21/2022 reviewed. [...] 4:23 PM EDT): Follows with neuro at [facility], Dr Munoz [phone]. Her most recent note from 07/21/2022 reviewed. [...] after 11/05/25 -last optho apt 09/14/24 a [facility] -Dentist in [facility] -Health care proxy paperwork completed by the patient 05/13/23 Assessment & Plan (11/05/2024 10:42 AM EDT): -next comprehensive annual evaluation due after 11/05/25 -last optho apt 09/14/24 a [facility] -Dentist in [facility] -Health care proxy paperwork completed by the patient 05/13/23 Assessment & Plan (05/13/2023 9:49 AM EDT): -physical due after 07/2023 -last optho apt 04/16/2022 a [facility] -Health care proxy paperwork completed by the patient 05/13/23 Assessment & Plan (08/11/2022 10:45 AM EDT): Next PE due 2023. -last optho apt 04/16/2022 at [facility] -sleep study at [facility] 3dx snoring, no sleep apnea -Encouraged dental 08/11/2022. 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 Hx seizures. 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 Follows with neuro at [facility], Dr Munoz [phone]. Her most recent note from 07/21/2022 reviewed. [...] to mood and hallucination. Assessment & Plan (01/21/2025 11:19 AM EST): Communicating hydrocephalus with efren cisterna magna. Hx seizures. 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 Follows with neuro at [facility], Dr Munoz [phone]. Her most recent note from 07/21/2022 reviewed. [...] hemizygous for a novel variant in the OMF240 gene. Follows with neuro at [facility], Dr Munoz [phone]. Her most recent note from 07/21/2022 reviewed. [...] hemizygous for a novel variant in the USB402 gene. Follows with neuro at [facility], Dr Munoz [phone]. Her most recent note from 07/21/2022 reviewed. [...] hemizygous for a novel variant in the HWC483 gene. Follows with neuro at [facility], Dr Munoz [phone]. Her most recent note from 07/21/2022 reviewed. [...] to mood and hallucination. Dyslipidemia 02/01/2022 Overview (02/04/2025): Lab Results Component Value Date CHOLESTEROL 234 (H) 08/18/2022 LDLCHOL 146 (H) 08/18/2022 LDLCHOL 156 (H) 08/12/2021 TRIG 306 (H) 01/18/2025 TRIG 282 (H) 10/26/2024 TRIG 283 (H) 05/16/2023 TRIG 323 (H) 08/18/2022 HDLCHOL 38 (L) 08/18/2022 CHOLHDLRAT 6.2 (H) 08/18/2022 Fish oil started 08/11/2022. Increase to 2 in the morning and 2 at night 11/05/24 -reordered las 11/05/24 still high despite fish oil, will add atrovastatin 20mg daily to fish oil and referral to Collaborative Drug Therapy Managment Program with our PharmDKIERRA 01/21/25 *Patient was seen in [facility] clinic 02/04/25; reports adherence to atorvastatin as recently started by PCP. Assessment & Plan (01/21/2025 11:19 AM EST): Lab Results Component Value Date CHOLESTEROL 234 (H) 08/18/2022 LDLCHOL 146 (H) 08/18/2022 LDLCHOL 156 (H) 08/12/2021 TRIG 306 (H) 01/18/2025 TRIG 282 (H) 10/26/2024 TRIG 283 (H) 05/16/2023 TRIG 323 (H) 08/18/2022 HDLCHOL 38 (L) 08/18/2022 CHOLHDLRAT 6.2 (H) 08/18/2022 Fish oil started 08/11/2022. Increase to 2 in the morning and 2 at night 11/05/24 -reordered las 11/05/24 still high despite fish oil, will add atrovastatin 20mg daily to fish oil and referral to Collaborative Drug Therapy Managment Program with our PharmDKIERRA 01/21/25 Orders: atorvastatin (Lipitor) 20 MG tablet; Take 1 tablet (20 mg) by mouth Once per day. Referral to Pharmacy [facility] Lipid Panel, Standard; Future Assessment & Plan (11/05/2024 10:42 AM EDT): [...] hemizygous for a novel variant in the SHR617 gene. -genetics note from [facility] 08/05/2016 reviewed -recommend thyroid function tests -recommend multidiciplinary approach and continue with psychiatry Assessment & Plan (11/05/2024 10:42 AM EDT): Communicating hydrocephalus with efren cisterna magna. Hx seizures. 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 -genetics note from [facility] 08/05/2016 reviewed -recommend thyroid function tests -recommend multidiciplinary approach and continue with psychiatry Assessment & Plan (05/13/2023 9:36 AM EDT): Communicating hydrocephalus with efren cisterna magna. Hx seizures. 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 -genetics note from [facility] 08/05/2016 reviewed -recommend thyroid function tests -recommend multidiciplinary approach and continue with psychiatry Assessment & Plan (08/10/2022 4:22 PM EDT): Communicating hydrocephalus with efren cisterna magna. Hx seizures. 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 Overview (08/10/2022): -Followed at [facility] -note form 03/2021 reviewed, recommended -alternating with benzoyl peroxide was and ketoconazole shampoo in the am -continue clinda gel once in the am -can use flucinonide cream if itchy nightly as needed Assessment & Plan (05/13/2023 9:36 AM EDT): -Followed at [facility] -note form 03/2021 reviewed, recommended -alternating with benzoyl peroxide was and ketoconazole shampoo in the am -continue clinda gel once in the am -can use flucinonide cream if itchy nightly as needed 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/HCC) 02/13/2014 Assessment & Plan (01/21/2025 11:19 AM EST): Stable with therapist and psychiatrist. Assessment & Plan (11/05/2024 10:42 AM EDT): Dx 12/2022. Per psychiatric note: -Teach relaxation and coping strategies -Continue with psychiatrist. Consider referral for therapist through [facility]. 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 No need for SBE prophylaxis. No activity limitations. -F/u-Dr. Martini in [place] 09/2021. -Cardiology note 06/24/[address] Yanely Bravo, DO, FAAP, FACC, Pediatric Cardiology [facility] -EKG 05/2023 NSR with voltage criteria for LVH -echo 06/23/23 no significant LVH, mild thickened aortic valve, unchanged from 2 years pior -recommend transition to adult congenital heart disease clinic with follow up 1 year, referral placed by pediatric cardiology 06/23/23 -seen by [facility] cardiology 06/26/24. Note reviewed. No SBE indicated. Assessment & Plan (01/21/2025 11:19 AM EST): -small, restrictive supracristal VSD with associated aortic valve prolapse, stable mild to moderate aortic insufficieny -Cardiology note 10/11/2019 reporting VSD is small and not hemodynamically significant -No interventions. No need for SBE prophylaxis. No activity limitations. -F/u-Dr. Martini in [place] 09/2021. -Cardiology note 06/24/[address] Yaenly Bravo, DO, FAAP, FACC, Pediatric Cardiology [facility] -EKG 05/2023 NSR with voltage criteria for LVH -echo 06/23/23 no significant LVH, mild thickened aortic valve, unchanged from 2 years pior -recommend transition to adult congenital heart disease clinic with follow up 1 year, referral placed by pediatric cardiology 06/23/23 -seen by [facility] cardiology 08/13/24 well request notes Assessment & Plan (11/05/2024 10:42 AM EDT): -small, restrictive supracristal VSD with associated aortic valve prolapse, stable mild to moderate aortic insufficieny -Cardiology note 10/11/2019 reporting VSD is small and not hemodynamically significant -No interventions. No need for SBE prophylaxis. No activity limitations. -F/u-Dr. Martini in [place] 09/2021. -Cardiology note 06/24/[address] Yanely Bravo, , FAAP, FACC, Pediatric Cardiology [facility] -EKG 05/2023 NSR with voltage criteria for [...] prophylaxis. No activity limitations. -F/u-Dr. Martini in [place] 09/2021. -We are calling cardiology to see if Pt went in 2021, we will help setting up if he did not. -Referral placed to Cardiology for further evaluation and management 05/13/23 Assessment & Plan (08/11/2022 10:48 AM EDT): -Last cardiology note 10/11/2019 reporting VSD is small and not hemodynamically significant -No interventions. No need for SBE prophylaxis. No activity limitations. -F/u-Dr. Martini in [place] 09/2021. -We are calling cardiology to see if Pt went in 2021, we will help setting up if he did not. Resolved Problems Problem Noted Date Diagnosed Date Resolved Date Tonic-clonic epileptic seizure (CMS/HCC) 05/13/2023 05/24/2024 Moderate intellectual disabilities 12/29/2016 08/10/2022 Encounters Date Type Department Care Team Description 02/25/2025 Travel 02/04/2025 Travel 01/28/2025 Travel 01/21/2025 11:00 AM EST Office Visit [address] [address] Madyson Mayorga MD Dyslipidemia (Primary Dx); Communicating hydrocephalus (CMS/HCC) (HCC); Developmental delay; Tonic clonic epilepsy (CMS/HCC) (HCC); Ventricular septal defect; Aortic valve prolapse; Transaminitis; Schizophrenia, unspecified type (HCC); Chronic myofascial pain; Encounter for immunization 01/21/[address] [address] Madyson Mayorga MD Record Request 01/21/[address] [address] Madyson Mayorga MD 01/21/2025 Travel 01/18/[address] [address] Madyson Mayorga MD CHART PREP 01/16/[address] [address] Madyson Mayorga MD Lab Orders 01/16/2025 Telephone [facility] [address] [place] [address] Madyson Mayorga MD 01/15/2025 Travel 01/04/2025 Refill [facility] [address] [place] [address] Madyson Mayorga MD 12/03/2024 Telephone [facility] [address] [place] [address] Madyson Mayorga MD December Recalls 12/03/2024 Travel from Last 3 Months Immunizations Immunization Administration Dates Next Due DTaP 09/03/2005, 3,02/16/2002,12/04,2001 HPV 9-Valent 05/01/2015,12/16/2014 HPV, Quadrivalent 05/20/2014 Hep A, ped/adol, 2 dose 01/12/2016,05/01/2015 Hep B, Adolescent or Pediatric 2001,2001,2001 Hib (HbOC) 09/03/2002,2001,2001 IPV 09/03/2005, 2,2001,06/22 Influenza injectable quadriv alent preservative free 12/08/2021,01/21/2021,12/28/2019,01/15,01/18/2018,03/30/2017,11/19/2015 ,12/16/2014,01/04/2014 Influenza, IIV3, injectable 03/22/2011 Influenza, Split (incl. lucho fied surface antigen) 01/05/2013,11/17/2011 Influenza, seasonal, injecta ble, preservative free 01/21/2025 MMR 09/03/2005,05/24/2002 Meningococcal MCV4P [id number]-135 01/18/2018,04/06/19 14 [...] Sign Reading Time Taken Comments Blood Pressure 130/60 02/04/2025 9:18 AM EST Pulse 84 02/04/2025 9:18 AM EST Temperature 36 C (96.8 F) 01/21/2025 10:52 AM EST Respiratory Rate 20 01/21/2025 10:52 AM EST Oxygen Saturation 98% 01/21/2025 10:52 AM EST Inhaled Oxygen Concentration - - Weight 68.3 kg (150 lb 9.6 oz) 01/21/2025 10:52 AM EST Height 152.4 cm (5') 01/21/2025 10:52 AM EST Body Mass Index 29.41 01/21/2025 10:52 AM EST Plan of Treatment Upcoming Encounters Date Type Department Care Team (Late st Contact Info) Description 03/04/2025 9:00 AM EST Medication Management [facility] [address] [place], [place] [phone] Adrienne Durand, PharmD [address] [place], [place] [phone] Health Maintenance Due Date Last Done Comments Chlamydia and Gonorrhea Screening 2001 Alcohol/Substance Use Screening 11/05/2025 11/05/2024 Depression Screening 11/05/2025 11/05/2024, 11/06/19 25 Family Planning (PISQ) 11/05/2025 11/05/2024 SDOH Screening 11/05/2025 11/05/2024 Disability Screening 01/15/2026 01/15/2025 COVID-19 Vaccine ( season) 2026 05/13/2023, 08/11/2022, 02/12/2021, Additional history exists Postponed from 10/29/2024 (Patient Refused) Meningococcal B Vaccine (1 of 2 - Standard) 01/21/2026 Postponed from 2017 (Other Medical Reasons) Lipid Panel 01/18/2030 01/18/2025, 08/10/2024, 05/16/2023, Additional history exists DTaP/Tdap/Td Vaccines (8 - [...] Completed 05/13/2023, 09/03/2002, 2001, Additional history exists Influenza Vaccine Completed 01/21/2025, , 01/21/2021, Additional history exists Tobacco Screening Discontinued 01/21/2025 RSV under 20 months Aged Out No longe r eligible based on patient's age to complete this topic Rotavirus Vaccines Aged Out No longer eligible based on patient's age to complete this topic Procedures Procedure Name Priority Date/Time Associated Diagnosis Comments HEPATIC FUNCTION PANEL Routine 01/18/2025 8:40 AM EST Transaminitis LIPID PANEL, STANDARD Routine 01/18/2025 8:40 AM EST Dyslipidemia HEPATITIS C AB W/REFL TO HCV RNA, QN, PCR Routine 08/18/2022 8:26 AM EDT Routine screening for STI (sexually transmitted infection) HIV 1/2 ANTIGEN/ANTIBODY, FOURTH GENERATION W/RFL Routine 08/18/2022 8:26 AM EDT Routine screening for STI (sexually transmitted infection) from Last 3 Months or Most Recently Relevant to Health Maintenance Results * (ABNORMAL) Hepatic Function Panel (01/18/2025 8:40 AM EST) Bilirubin, Total 0.7 0.0 - 1.0 mg/dL [facility] Bilirubin, Direct 0.2 0.0 - 0.5 mg/dL [facility] Aspartate Amino Transferase 38(H) 5 - 37 U/L [facility] Alanine Aminotransferase 37 0 - 40 U/L [facility] Total Protein 8.4(H) 6.5 - 8.0 g/dL [facility] Albumin Level 5.1(H) 3.5 - 5.0 g/dL [facility] Alkaline Phosphatase 50 39 - 117 U/L [facility] Blood Venous blood specimen / Unknown 01/18/2025 8:40 AM EST 01/18/2025 11:31 AM EST us Madyson Mayorga MD LAB BLOOD ORDERABLES Final Result [facility] [address] [place] [phone] * (ABNORMAL) Lipid Panel, Standard (01/18/2025 8:40 AM EST) Triglycerides 306(H) <150 mg/dL [facility] Comment:Desirable Triglyceri de: less than 150 mg/dLBorderline High Triglyceride 150-199 mg/dLHigh Triglyceride: 200-499 mg/dLVery High Triglyceride: greater than or equal to 5OO mg/dL Cholesterol 251(H) <200 mg/dL [facility] Comment:Desirable Cholestero l: less than 200 mg/dLBorderline High Cholesterol: 200-239 mg/dLHigh Cholesterol: greater than 239 mg/dL LDL Cholesterol Calculated 145(H) <100 mg/dL [facility] Comment:Desirable LDL: less than 100 mg/dLNear Optimal/Above Optimal LDL: 110- 129 mg/dLBorderline High LDL: 130-159 mg/dLHigh LDL: 160-189 mg/dLVery High LDL: greater than or equal to 190 mg/dL HDL Cholesterol 45 >40 mg/dL [facility] Comment:Desirable HDL: great er than 40 mg/dL Note: This HDL assay may give artificially low results in patients with liver disease. Blood Venous blood specimen / Unknown 01/18/2025 8:40 AM EST 01/18/2025 11:31 AM EST Madyson Mayorga MD LAB BLOOD ORDERABLES Final Result Performing Organization Address City/[facility]/ZIP Co de Phone Number [facility] [address] [place] [phone] * Hepatitis C Antibody with Reflex to HCV, RNA, Quantitative, Real-Time PCR (08/18/2022 8:26 AM EDT) Hepatitis C Antibody NON-REACT ALVARO NON-REACT ALVARO [facility] Comment: HCV antibody was non-reactive. There is no laboratory evidence of HCV infection. In most cases, no further action is required. However, if recent HCV exposure is suspected, a test for HCV RNA (test code 77902) is suggested. For additional information please refer to http://education.Fairphone/faq/YYB81o9 (This link is being provided for informational/ educational purposes only.) Blood Venous blood specimen / Unknown 08/18/2022 8:26 AM EDT 08/18/2022 8:27 AM EDT Narrative [facility] - 08/18/2022 11:54 PM EDT FASTING:YES FASTING: YES Result [facility] Madyson Mayorga MD LAB BLOOD ORDERABLES Final Result Performing Organization Address City/[facility]/ZIP Co de Phone Number [facility] [address] [place] [phone] [facility] [address] [place] [phone] * HIV-1/2 Antigen and Antibodies, Fourth Generation, with Reflexes (08/18/2022 8:26 AM EDT) Pathologist [facility] HIV Antigen/Antibody, 4th Generation NON-REAC TIVE NON-REAC TIVE [facility] [place] [facility] Comment: HIV-1 antigen and HIV-1/HIV-2 antibodies were [...] purpose. For additional information please refer to http://education.Fairphone/faq/RSM683 (This link is being provided for informational/ educational purposes only.) The performance of this assay has not been clinically validated in patients less than 2 years old. Blood Venous blood specimen / Unknown 08/18/2022 8:26 AM EDT 08/18/2022 8:27 AM EDT Narrative [facility] - 08/18/2022 11:54 PM EDT FASTING:YES FASTING: YES Madyson Mayorga MD LAB BLOOD ORDERABLES Final Result [facility] [address] [place] [phone] [facility] [address] [place] [phone] from Last 3 Months or Most Recently Relevant to Health Maintenance [place] [address] [place] [address] STANDARD MEDICARE Care Teams Fabrication Operator Relationship Specialty Start Date End Date [place], [place] Madyson [address] [place] [phone] PCP - General Family Medicine 09/15/20 Jai Damon [address] [place] [id number] Dermatology 01/21/25 Adrienne Durand PharmD [address] [place] [id number] Pharmacist Pharmacy 02/04/25 Dr. Jai Song MD [facility] Cardiology [address] [place] [address] Cardiology 01/21/25 Dr. Juan Daniel Manuel [place] [address] Rheumatology 01/21/25 Marcella BALDERAS Psychiatry 01/21/25 Angela BALDERAS Psychology 01/21/25
[2025-02-26 12:30] LABS: Alanine Aminotransferase 35 U/L (0-40); Albumin Level 4.8 g/dL (3.5-5.0); Alkaline Phosphatase 44 U/L (39-117); Aspartate Amino Transferase 34 U/L (5-37); Cholesterol 151 mg/dL (<200); HDL Cholesterol 48 mg/dL (>40); Total Protein 7.6 g/dL (6.5-8.0); Triglycerides 144 mg/dL (<150)
== END 2025-02-26 08:28 | disposition home or self-care (01) ==
LOC: HO.HHCL 08:27
PROVIDERS: PCP Family Medicine; Visit Provider Family Medicine
DX: R74.01 Elevation of levels of liver transaminase levels (principal); E78.5 Hyperlipidemia, unspecified
CPT/HCPCS: 36415; 80061; 80076